=== PATIENT | male | born 1955 | race Caucasian/White ===

== ENCOUNTER 2016-10-29 06:03 | Inpatient (IN) | payer OTHER ==
[2016-10-29] MEDS ORDERED: LEVOFLOXACIN 750 MG/D5W RTU 150 ML IV ONE (06:18)
[2016-10-29] MEDS ORDERED: CEFTRIAXONE 1 GM/D5W RTU 50 ML IV ONE (06:18)
[2016-10-29] MEDS ORDERED: NORMAL SALINE 1000 ML 1,000 ML IV ONE ×2 (06:18→09:40)
[2016-10-29 07:00] LABS: HEMATOCRIT 55.3 % (37.9-51.0); HGB HCT DIFFERENCE -1.3; MEAN CORPUSCULAR HEMOGLOBIN 29.9 pg (27.0-33.4); MEAN CORPUSCULAR HGB CONC 32.5 g/dL (32.0-36.0); MEAN CORPUSCULAR VOLUME 92 fl (80-97); RED BLOOD COUNT 6.02 10^6/uL (4.35-5.55); RED CELL DISTRIBUTION WIDTH 14.5 % (11.5-14.0); WHITE BLOOD COUNT 23.3 10^3/uL (4.0-10.5)
[2016-10-29 07:04] LABS: PROTHROMBIN TIME 29.8 SEC (11.4-15.4)
[2016-10-29 07:08] LABS: APPEARANCE,URINE TURBID; BILIRUBIN,URINE NEGATIVE (NEGATIVE); GLUCOSE, URINE NEGATIVE (NEGATIVE); KETONES,URINE NEGATIVE (NEGATIVE); LEUKOCYTE ESTERASE,URINE LARGE (NEGATIVE); NITRITE,URINE POSITIVE (NEGATIVE); PROTEIN,URINE NEGATIVE (NEGATIVE); URINE SPECIFIC GRAVITY 1.006; UROBILINOGEN,URINE NEGATIVE mg/dL (<2.0)
[2016-10-29 07:11] LABS: ALANINE AMINOTRANSFERASE 48 U/L (21-72); ALBUMIN 4.7 g/dL (3.5-5.0); ALKALINE PHOSPHATASE 145 U/L (38-126); ASPARTATE AMINO TRANSFERASE 34 U/L (17-59); BILIRUBIN,DIRECT 0.4 mg/dL (0.0-0.4); BILIRUBIN,TOTAL 0.8 mg/dL (0.2-1.3); BLOOD UREA NITROGEN 14 mg/dL (7-20); CALCIUM 10.7 mg/dL (8.4-10.2); CARBON DIOXIDE 21 mmol/L (22-30); CREATININE RESULT 1.19 mg/dL (0.52-1.25); GLUCOSE 192 mg/dL (75-110); LIPASE 174.3 U/L (23-300); TOTAL PROTEIN 9.2 g/dL (6.3-8.2)
[2016-10-29 07:24] LABS: BAND NEUTROPHILS % (MANUAL) 3 % (3-5); BASOPHILS % (MANUAL) 0 % (0-2); EOSINOPHILS % (MANUAL) 0 % (0-6); LYMPHOCYTES % (MANUAL) 8 % (13-45); TOTAL CELLS COUNTED 100
[2016-10-29 07:27] LABS: OVALOCYTES SLIGHT; PLATELET CLUMPS PRESENT; POIKILOCYTOSIS 1+; TEAR DROP CELLS SLIGHT
[2016-10-29 07:36] LABS: CHLORIDE 103 mmol/L (98-107); POTASSIUM 4.1 mmol/L (3.6-5.0)
[2016-10-29 07:37] LABS: ANION GAP 22 (5-19)
[2016-10-29] MEDS: NORMAL SALINE 1000 ML 1,000 ML IV PRN ×2 (07:58→08:00)
[2016-10-29 08:47] LABS: VENOUS BLOOD BASE EXCESS -5.3 mmol/L; VENOUS BLOOD HCO3 19.3 mmol/L (20-32); VENOUS BLOOD PCO2 34.9 mmHg (35-63); VENOUS BLOOD PH 7.36 (7.30-7.42)
--- NOTE | 2016-10-29 10:12 | RADIOLOGY REPORT (SQ) ---
EXAM DESCRIPTION: CT ABD/PELVIS WITH IV ONLY COMPLETED DATE/TIME: 10/29/2016 9:43 am REASON FOR STUDY: sepsis COMPARISON: None. TECHNIQUE: CT scan of the abdomen and pelvis performed using helical scanning technique with dynamic intravenous contrast injection. No oral contrast. Images reviewed with lung, soft tissue, and bone windows. Reconstructed coronal and sagittal MPR images reviewed. Delayed images for evaluation of the urinary system also acquired. All images stored on PACS. All CT scanners at this facility use dose modulation, iterative reconstruction, and/or weight based d osing when appropriate to reduce radiation dose to as low as reasonably achievable (ALARA). [facility]: Dose Right [facility]: CareDose [facility]: Dose Right [facility]: Teradose 4D [facility]: Stroho CONTRAST TYPE AND DOSE: 100 Isovue 370- low osmolar. RENAL FUNCTION: CREATININE MEASURES 1.19 RADIATION DOSE: 40.07mGy. LIMITATIONS: None. FINDINGS: LOWER CHEST: Patchy dependent subsegmental atelectasis. LIVER: Normal size. No masses or dilated ducts. SPLEEN: Normal size. No focal lesions. PANCREAS: No masses. No significant calcifications. No adjacent inflammation or peripancreatic fluid collections. Pancreatic duct not dilated. GALLBLADDER: No identified stones by CT criteria. No inflammatory changes to suggest cholecystitis. ADRENAL GLANDS: No significant masses or asymmetry. RIGHT KIDNEY AND URETER: No solid masses. No significant calcifications. No hydronephrosis or hyd roureter. LEFT KIDNEY AND URETER: No solid masses. No significant calcifications. No hydronephrosis or hydr oureter. AORTA AND VESSELS: No aneurysm. No dissection. Renal arteries, SMA, celiac without stenosis. RETROPERITONEUM: No retroperitoneal adenopathy, hemorrhage or masses. BOWEL AND PERITONEAL CAVITY: No masses or inflammatory changes. No free fluid or peritoneal masses. APPENDIX: Normal. PELVIS: No mass or free fluid. Bladder is decompressed with Neely catheter. There is marked circumf erential bladder wall thickening. ABDOMINAL WALL: No masses. Fat containing periumbilical and bilateral inguinal hernias. BONES: Degenerative change without fracture or suspicious osseous lesion. OTHER: No other significant finding. IMPRESSION: BLADDER DECOMPRESSED WITH NEELY CATHETER WITH MARKED CIRCUMFERENTIAL BLADDER WALL THICKE JOSEPH SUGGESTIVE OF CYSTITIS. CORRELATE WITH URINARY STUDIES. NO ADDITIONAL ACUTE OR SIGNIFICANT FIN DINGS. TECHNICAL DOCUMENTATION: JOB ID: [id number] Quality ID # [id number]: Final reports with documentation of one or more dose reduction techniques (e.g., Au tomated exposure control, adjustment of the mA and/or kV according to patient size, use of iterative reconstruction technique) 2010 [employer]- All Rights Reserved
--- NOTE | 2016-10-29 10:18 | RADIOLOGY REPORT (SQ) ---
EXAM DESCRIPTION: CHEST PA/LAT COMPLETED DATE/TIME: 10/29/2016 9:59 am REASON FOR STUDY: sepsis COMPARISON: None. EXAM PARAMETERS: NUMBER OF VIEWS: two views TECHNIQUE: Digital Frontal and Lateral radiographic views of the chest acquired. RADIATION DOSE: NA LIMITATIONS: Limited lateral view. FINDINGS: LUNGS AND PLEURA: No opacities, masses or pneumothorax. No pleural effusion. MEDIASTINUM AND HILAR STRUCTURES: No masses or contour abnormalities. HEART AND VASCULAR STRUCTURES: Heart normal size. No evidence for failure. BONES: No acute findings. HARDWARE: None in the chest. OTHER: No other significant finding. IMPRESSION: NO SIGNIFICANT RADIOGRAPHIC FINDING IN THE CHEST. TECHNICAL DOCUMENTATION: JOB ID: [id number] [employer]- All Rights Reserved
--- NOTE | 2016-10-29 10:21 | ER Document Report ---
ED General - General Chief Complaint: Urinary Problem Stated Complaint: ABDOMINAL PAIN Time Seen by Provider: 10/29/16 06:28 - HPI Patient complains to provider of: Abdominal pain decreased urinary output Notes: Patient presents today with a history of a CVA and spinal cord injury with indwelling Mcguire catheter patient is originally from [facility] and is here at the [facility] visiting from vacation patient presents for decreased urinary output. Upon evaluation patient also is complaining of upper abdominal pain. Patient denies any nausea vomiting diarrhea. HPI is made difficult as patient has previous CVA we will looks to be expressive aphasia. Upon family arrival states patient otherwise neurologically intact does have some residual weakness and contractures of the left side however this is normal for the patient. States patient's been afebrile no nausea no vomiting. No changes in medications Past Medical History - Social History Smoking Status: Unknown if Ever Smoked Drug Abuse: None Family History: Reviewed & Not Pertinent Review of Systems - Review of Systems Constitutional: No symptoms reported EENT: No symptoms reported Cardiovascular: No symptoms reported Respiratory: No symptoms reported Gastrointestinal: No symptoms reported Genitourinary: Retention Male Genitourinary: No symptoms reported Musculoskeletal: No symptoms reported Skin: No symptoms reported Hematologic/Lymphatic: No symptoms reported Neurological/Psychological: No symptoms reported -: Yes All other systems reviewed and negative Physical Exam - Vital signs Vitals: Resp 23 H 10/29/16 06:12 Interpretation: Normal - General General appearance: Appears well, Alert - HEENT Head: Normocephalic, Atraumatic Eyes: Normal Pupils: PERRL - Respiratory Respiratory status: No respiratory distress Chest status: Nontender Breath sounds: Normal Chest palpation: Normal - Cardiovascular Rhythm: Regular Heart sounds: Normal auscultation Murmur: No - Abdominal Inspection: Normal Distension: No distension Bowel sounds: Normal Tenderness: Nontender Organomegaly: No organomegaly - Genitourinary Inspection: Other - Scrotum is red and irritated mildly swollen there is no signs of torsion or mass reflexes intact. Patient does have indwelling Mcguire catheter that has some debris around the catheter site this was exchanged by nursing staff. After exchange patient had approximately 1000 cc output with cloudy urine with white debris - Back Back: Normal, Nontender - Extremities General upper extremity: Normal inspection, Nontender General lower extremity: Normal inspection, Nontender - Neurological Neuro grossly intact: Yes Vanesa Coma Scale Eye Opening: Spontaneous [place] Coma Scale Verbal: Oriented [place] Coma Scale Motor: Obeys Commands Vanesa Coma Scale Total: 15 Sensory: Normal - Psychological Associated symptoms: Normal affect, Normal mood - Skin Skin Temperature: Warm Skin Moisture: Dry Skin Color: Normal Course - Re-evaluation Re-evalutation: 10/29/16 11:00 Coming in for evaluation decreased urinary output. Patient was found to be tachycardic hypotensive. Patient Mcguire catheter was exchanged with a generous amount of urinary output unable to be infected. Patient's lab work does show signs of sepsis with elevated white count dehydration with hemoconcentration. EKG was performed showing minimal ST segment elevation however patient has no chest pain noted depressions no reciprocal changes no signs of STEMI at this time. Patient's Coumadin level at this time does look to be therapeutic. Family other than stating patient had a seizure disorder and is on Keppra and is on Coumadin due to his previous CVA are unable to provide much of the past medical history. Patient was recently admitted to the hospital in [place] for approximately 9 days for similar infection we have faxed multiple times request to receive her records however yet there is been no response. Patient otherwise looks to be stable at this time. Blood pressure has improved to greater than 100 systolic. Heart rate is now in the 80s. Discussed with hospitalist for admission 10/29/16 11:01 - Vital Signs Vital signs: Temp Pulse Resp BP Pulse Ox 29 H 10/29/16 06:15 - Laboratory Result Diagrams: 10/29/16 06:41 10/29/16 06:41 Laboratory results interpreted by me: 10/29/16 10/29/16 10/29/16 06:41 06:41 06:41 WBC 23.3 H RBC 6.02 H Hgb 18.0 H Hct 55.3 H RDW 14.5 H Seg Neuts % (Manual) 88 H Lymphocytes % (Manual) 8 L Monocytes % (Manual) 1 L Abs Neuts (Manual) 21.2 H PT 29.8 H VBG pCO2 VBG HCO3 Sodium 146.0 H Carbon Dioxide 21 L Anion Gap 22 H Glucose 192 H Lactic Acid Calcium 10.7 H Alkaline Phosphatase 145 H Total Protein 9.2 H Urine Blood Urine Nitrite Ur Leukocyte Esterase 10/29/16 10/29/16 10/29/16 06:41 06:53 08:30 WBC RBC Hgb Hct RDW Seg Neuts % (Manual) Lymphocytes % (Manual) Monocytes % (Manual) Abs Neuts (Manual) PT VBG pCO2 34.9 L VBG HCO3 19.3 L Sodium Carbon Dioxide Anion Gap Glucose Lactic Acid 5.9 H Calcium Alkaline Phosphatase Total Protein Urine Blood MODERATE H Urine Nitrite POSITIVE H Ur Leukocyte Esterase LARGE H Critical Care Note - Critical Care Note Total time excluding time spent on procedures (mins): 35 Comments: Multiple evaluations due to sepsis Discharge - Discharge Clinical Impression: History of warfarin therapy, History of stroke, History of spinal cord accident UTI (urinary tract infection) due to urinary indwelling Mcguire catheter Qualifiers: Indwelling urinary catheter type: indwelling urethral catheter Encounter type: initial encounter Qualified Code(s): T83.511A - Infection and inflammatory reaction due to indwelling urethral catheter, initial encounter Sepsis Qualifiers: Sepsis type: sepsis due to unspecified organism Qualified Code(s): A41.9 - Sepsis, unspecified organism Condition: Good Disposition: ADMITTED INPATIENT Admitting Provider: [facility] Unit Admitted: [facility]
--- NOTE | 2016-10-29 12:03 | PDOC H&P ---
History of Present Illness Admission Date/PCP: 10/29/2016 History of Present Illness: HUMBERTO GARCIA is a 61 year old white male with a past medical history of CVA, spinal cord injury, and chronic indwelling Neely with multiple urinary tract infections who presents to the service with decreased urinary output. Patient has expressive aphasia. Therefore, the history is taken from his and my discussion with the emergency room physician. According to the patient's they travelled down here from [facility] [place] vacation [place]. Over the last week the patient has had development of cloudy urine. His gave him copious fluids to flush system and his urine seemed to clear up. Yesterday they noticed that he stopped putting out urine altogether. They tried to figure out if there was something mechanically wrong with the Neely but could not get it to work. In the ED the patient was found to be hypotensive down to the 80s, tachycardic and a lactic acid of 6. The Neely catheter was exchanged and the patient was able to pass large amounts of urine. It was described as thick and cloudy. Urinalysis revealed positive nitrates and leukocyte esterase. CT of the abdomen was done and is negative. Chest x-ray was negative. The patient's spouse denied any fevers, chills, nausea or vomiting at home. They are from [facility] and [facility] Request for records has already been sent down in the emergency room. Received 3 L of fluid with blood pressure coming back up to 101. However, after my discussion with the patient's she tells me that the patient is usually hypotensive with systolic blood pressures in the 80s and 90s. Past Medical History Neurological Medical History: Reports: Ischemic CVA - Rest of apasia. August 2015 with residual right-sided weakness, Seizures Neurological History Note: Spinal cord injury the age of 25. Past Surgical History Past Surgical History: Spinal cord fusion. Social History Information Source: Patient, Relative Lives with: Spouse/Significant other Smoking Status: Former Smoker - Smoked for 10 years. He quit in August 2015 Frequency of Alcohol Use: None Hx Recreational Drug Use: No - Advance Directive Resuscitation Status: Full Code Family History Family History: Hypertension Parental Family History Reviewed: Yes Children Family History Reviewed: Yes Sibling(s) Family History Reviewed.: Yes Review of Systems Review of Systems: The patient had expressive aphasia and is not able to give a complete review of systems however his is at the bedside and states that he has had not had any issues with blood in the urine, blood in the stool, coughing up blood, throwing up blood. There have been no unintentional changes in weight. His appetite has been fair. He has not complained of chest pain or shortness of breath. He has not complained of cold or heat intolerance. He does confirm that he has trouble with constipation he does not have diarrhea. Physical Exam Vital Signs: Temp Pulse Resp BP Pulse Ox 29 H 10/29/16 06:15 Physical exam: General: This is a well-developed well-nourished appearing white male resting in bed currently in no acute distress. HEENT: Normocephalic atraumatic. trachea is midline. Sclera are anicteric. Pupils are equal and reactive. The asymmetric smile with flattening of the left nasolabial fold condition is fair moist mucous membranes. Heart: Regular rate and rhythm I do not hear any murmurs rubs or gallops. Lungs: Clear to auscultation bilaterally from the anterior perspective with equal rise and fall with chest pain Abdomen: Soft nontender nondistended with active bowel sounds. Extremities: No clubbing cyanosis or edema. 2+ peripheral pulses. Has contractures of the right hand. He cannot move his right leg. It appears to have some foot drop on that side. Strength in the left upper and strict extremities 4 out of 5. Left lower extremity the patient can move his toes. His states that he can move his left side and urges her to show me. The patient simply does not want to participate with the examination at this point. Therefore fully assess his left side secondary to lack of cooperation. Patient's states repeatedly that he can do what I am asking him to do that he simply does not want to. Neuro: Awake and alert. Please see examination details above. Has expressive aphasia Skin: Patient is warm dry and intact. Results Laboratory Results: 10/29/16 06:41 10/29/16 06:41 10/29/16 10/29/16 10/29/16 06:41 06:41 06:41 WBC 23.3 H RBC 6.02 H Hgb 18.0 H Hct 55.3 H MCV 92 MCH 29.9 MCHC 32.5 RDW 14.5 H Plt Count 255 Seg Neutrophils % Not Reportable Lymphocytes % Not Reportable Monocytes % Not Reportable Eosinophils % Not Reportable Basophils % Not Reportable Absolute Neutrophils Not Reportable Absolute Lymphocytes Not Reportable Absolute Monocytes Not Reportable Absolute Eosinophils Not Reportable Absolute Basophils Not Reportable VBG pH VBG pCO2 VBG HCO3 VBG Base Excess Sodium 146.0 H Potassium 4.1 Chloride 103 Carbon Dioxide 21 L Anion Gap 22 H BUN 14 Creatinine 1.19 Est GFR ( Amer) > 60 Est GFR (Non-Af Amer) > 60 Glucose 192 H Lactic Acid 5.9 H Calcium 10.7 H Magnesium Total Bilirubin 0.8 AST 34 ALT 48 Alkaline Phosphatase 145 H Total Protein 9.2 H Albumin 4.7 Lipase 174.3 Urine Color Urine Appearance Urine pH Ur Specific [place] Urine Protein Urine Glucose (UA) Urine Ketones Urine Blood Urine Nitrite Ur Leukocyte Esterase Urine WBC (Auto) Urine RBC (Auto) 10/29/16 10/29/16 10/29/16 06:41 06:41 06:53 WBC RBC Hgb Hct MCV MCH MCHC RDW Plt Count Seg Neutrophils % Lymphocytes % Monocytes % Eosinophils % Basophils % Absolute Neutrophils Absolute Lymphocytes Absolute Monocytes Absolute Eosinophils Absolute Basophils VBG pH Cancelled VBG pCO2 Cancelled VBG HCO3 Cancelled VBG Base Excess Cancelled Sodium Potassium Chloride Carbon Dioxide Anion Gap BUN Creatinine Est GFR ( Amer) Est GFR (Non-Af Amer) Glucose Lactic Acid Calcium Magnesium 2.3 Total Bilirubin AST ALT Alkaline Phosphatase Total Protein Albumin Lipase Urine Color YELLOW Urine Appearance TURBID Urine pH 6.0 Ur Specific [place] 1.006 Urine Protein NEGATIVE Urine Glucose (UA) NEGATIVE Urine Ketones NEGATIVE Urine Blood MODERATE H Urine Nitrite POSITIVE H Ur Leukocyte Esterase LARGE H Urine WBC (Auto) >182 Urine RBC (Auto) 4 10/29/16 08:30 WBC RBC Hgb Hct MCV MCH MCHC RDW Plt Count Seg Neutrophils % Lymphocytes % Monocytes % Eosinophils % Basophils % Absolute Neutrophils Absolute Lymphocytes Absolute Monocytes Absolute Eosinophils Absolute Basophils VBG pH 7.36 VBG pCO2 34.9 L VBG HCO3 19.3 L VBG Base Excess -5.3 Sodium Potassium Chloride Carbon Dioxide Anion Gap BUN Creatinine Est GFR ( Amer) Est GFR (Non-Af Amer) Glucose Lactic Acid Calcium Magnesium Total Bilirubin AST ALT Alkaline Phosphatase Total Protein Albumin Lipase Urine Color Urine Appearance Urine pH Ur Specific [place] Urine Protein Urine Glucose (UA) Urine Ketones Urine Blood Urine Nitrite Ur Leukocyte Esterase Urine WBC (Auto) Urine RBC (Auto) Impressions: Abdomen/Pelvis CT 10/29/16 07:42 IMPRESSION: BLADDER DECOMPRESSED WITH NEELY CATHETER WITH MARKED CIRCUMFERENTIAL BLADDER WALL THICKENING SUGGESTIVE OF CYSTITIS. CORRELATE WITH URINARY STUDIES. NO ADDITIONAL ACUTE OR SIGNIFICANT FINDINGS. Chest X-Ray 10/29/16 07:42 IMPRESSION: NO SIGNIFICANT RADIOGRAPHIC FINDING IN THE CHEST. Assessment & Plan - Diagnosis (1) UTI (urinary tract infection) due to urinary indwelling Neely catheter Qualifiers: Indwelling urinary catheter type: indwelling urethral catheter Encounter type: initial encounter Qualified Code(s): T83.511A - Infection and inflammatory reaction due to indwelling urethral catheter, initial encounter ; N39.0 - Urinary tract infection, site not specified Plan: Analysis is positive for nitrites as well as leukocyte esterase. Continue with Levaquin daily for now. In the ER he received Rocephin and Levaquin. (2) History of spinal cord injury Plan: Patient is at baseline. Hernandez. He apparently is on baclofen as an outpatient with this can be continued. (3) History of CVA (cerebrovascular accident) Plan: Patient has contractures. He has residual right-sided weakness. On warfarin as an outpatient for management of this. Will Continue. (4) Sepsis Qualifiers: Sepsis type: sepsis due to unspecified organism Qualified Code(s): A41.9 - Sepsis, unspecified organism Plan: The patient has sepsis as evidenced by elevated lactic acid, hypotension, tachycardia. The management with Levaquin daily. It is noted that the patient' s has stated that his blood pressure usually runs low. Status post 3 L of fluid in the ED we can continue at 100 cc an hour. - Time Time Spent: 50 to 70 Minutes - Inpatient Certification Based on my medical assessment, after consideration of the patient's comorbidities, presenting symptoms, or acuity I expect that the services needed warrant INPATIENT care.: Yes Medical Necessity: Need Close Monitoring Due to Risk of Patient Decompensation
--- NOTE | 2016-10-29 14:07 | Progress Note ---
Provider Note Provider Note: Update: I received a call from the ER physician. The patient's medical records from [place] did come through. He discloses to me that the patient does have a history of atrial fibrillation which is why he had a stroke in the past. He is also on Keppra for his seizure disorder and for his neurogenic bladder it does not appear that he is on any chronic antibiotics. He is however on Ativan as needed, baclofen, Celexa, gabapentin, Midrin, warfarin and the Keppra. He also has a history of MRSA urinary tract infection. Therefore, on daptomycin until we get his cultures back.
[2016-10-29] MEDS ORDERED: LORAZEPAM 0.5 MG TABLET PO PRN (15:44)
[2016-10-29] MEDS ORDERED: POLYETHYLENE GLYCOL 3350 POWDER 17 GM/1 PACKET PO PRN (17:30)
[2016-10-29] MEDS: DAPTOMYCIN 500 MG in NORMAL SALINE 50 ML IV SCH (18:00)
[2016-10-29] MEDS ORDERED: DAPTOMYCIN 500 MG in NORMAL SALINE 50 ML IV SCH (18:00)
[2016-10-29] MEDS ORDERED: BACLOFEN 20 MG TABLET ONE (21:42)
[2016-10-29] MEDS ORDERED: LEVETIRACETAM 500 MG TABLET PO SCH (22:00)
[2016-10-29] MEDS ORDERED: LEVETIRACETAM XR 500 MG TAB.SR.24H PO SCH (22:00)
[2016-10-29] MEDS: WARFARIN SODIUM 1 MG TABLET PO SCH (22:15)
[2016-10-29] MEDS: BACLOFEN 20 MG TABLET PO SCH (22:15)
[2016-10-29] MEDS: GABAPENTIN 100 MG CAPSULE PO SCH (22:15)
[2016-10-29] MEDS: LORAZEPAM 1 MG TABLET PO SCH (22:15)
[2016-10-29] MEDS: MIDODRINE HCL 5 MG TABLET PO SCH (22:16)
[2016-10-29] MEDS: WARFARIN SODIUM 2.5 MG TABLET PO SCH (22:16)
[2016-10-29] MEDS ORDERED: LEVETIRACETAM 500 MG TABLET PO ONE (22:45)
[2016-10-30] MEDS: NORMAL SALINE 1000 ML 1,000 ML IV PRN ×3 (01:00→21:15)
[2016-10-30] MEDS: GABAPENTIN 100 MG CAPSULE PO SCH ×3 (05:24→21:16)
[2016-10-30] MEDS: LANSOPRAZOLE 15 MG TAB.RAP.DR PO SCH (05:24)
[2016-10-30] MEDS: MIDODRINE HCL 5 MG TABLET PO SCH ×3 (05:24→21:11)
[2016-10-30] MEDS ORDERED: BACLOFEN 20 MG TABLET ONE (06:16)
[2016-10-30] MEDS: BACLOFEN 20 MG TABLET PO SCH ×3 (06:20→21:17)
[2016-10-30] MEDS: ESCITALOPRAM OXALATE 10 MG TABLET PO SCH (09:17)
[2016-10-30] MEDS: LEVETIRACETAM 500 MG TABLET PO SCH ×2 (09:18→21:17)
[2016-10-30] MEDS: LEVOFLOXACIN 500 MG/D5W RTU 100 ML IV SCH (09:18)
[2016-10-30] MEDS: DOCUSATE SODIUM 100 MG CAPSULE PO SCH (09:18)
[2016-10-30] MEDS: MULTIVITAMIN TABLET PO SCH (09:18)
--- NOTE | 2016-10-30 13:06 | PDOC PROGRESS REPORT ---
Subjective Progress Note for:: 10/30/16 Subjective:: This is a follow-up visit for UTI and sepsis. The patient had no acute events overnight. He currently has no complaints. Denies any chest pain or shortness of breath Physical Exam Vital Signs: Temp Pulse Resp BP Pulse Ox 97.6 F 58 L 17 116/70 96 10/30/16 11:58 10/30/16 11:58 10/30/16 11:58 10/30/16 11:58 10/30/16 11:58 Intake & Output 10/29/16 10/30/16 10/31/16 06:59 06:59 06:59 Intake Total 2249 720 Output Total 2250 1300 Balance -1 -580 Weight 93.4 kg Physical exam: General: This is a well-developed well-nourished appearing white male resting in bed currently in no acute distress. Heart: Regular rate and rhythm I do not hear any murmurs rubs or gallops. Lungs: Clear to auscultation bilaterally from the anterior perspective with equal rise and fall with chest pain Abdomen: Soft nontender nondistended with active bowel sounds. Extremities: No clubbing cyanosis or edema. Neuro: Awake and alert. Has expressive aphasia Skin: Patient is warm dry and intact. Results Impressions: Abdomen/Pelvis CT 10/29/16 07:42 IMPRESSION: BLADDER DECOMPRESSED WITH NEELY CATHETER WITH MARKED CIRCUMFERENTIAL BLADDER WALL THICKENING SUGGESTIVE OF CYSTITIS. CORRELATE WITH URINARY STUDIES. NO ADDITIONAL ACUTE OR SIGNIFICANT FINDINGS. Chest X-Ray 10/29/16 07:42 IMPRESSION: NO SIGNIFICANT RADIOGRAPHIC FINDING IN THE CHEST. Assessment & Plan - Diagnosis (1) UTI (urinary tract infection) due to urinary indwelling Neely catheter Qualifiers: Indwelling urinary catheter type: indwelling urethral catheter Encounter type: initial encounter Qualified Code(s): T83.511A - Infection and inflammatory reaction due to indwelling urethral catheter, initial encounter; N39.0 - Urinary tract infection, site not specified Plan: Analysis is positive for nitrites as well as leukocyte esterase. Continue with Levaquin daily for now. Await identification and speciation from the urine cultures. (2) History of spinal cord injury Plan: Patient is at baseline. Hernandez. He apparently is on baclofen as an outpatient with this can be continued. (3) History of CVA (cerebrovascular accident) Plan: Patient has contractures. He has residual right-sided weakness. On warfarin as an outpatient for management of this. Will Continue. (4) Sepsis Qualifiers: Sepsis type: sepsis due to unspecified organism Qualified Code(s): A41.9 - Sepsis, unspecified organism Plan: Secondary to urinary tract infection. This is resolving. Labs are still pending this morning - Time Time Spent with patient: 15-24 minutes - Inpatient Certification Medical Necessity: Need Close Monitoring Due to Risk of Patient Decompensation
[2016-10-30 16:08] LABS: ABSOLUTE EOSINOPHILS # (AUTO) 0.5 10^3/uL (0.0-0.6); ABSOLUTE LYMPHOCYTES (AUTO) 1.5 10^3/uL (0.5-4.7); ABSOLUTE MONOCYTES (AUTO) 0.5 10^3/uL (0.1-1.4); ABSOLUTE NEUT (AUTO) 3.9 10^3/uL (1.7-8.2); BASOPHILS % (AUTO) 0.7 % (0-2); EOSINOPHILS % (AUTO) 7.3 % (0-6); HEMATOCRIT 36.7 % (37.9-51.0); HGB HCT DIFFERENCE 1.4; LYMPHOCYTES % (AUTO) 23.6 % (13-45); MEAN CORPUSCULAR HEMOGLOBIN 30.6 pg (27.0-33.4); MEAN CORPUSCULAR HGB CONC 34.5 g/dL (32.0-36.0); MEAN CORPUSCULAR VOLUME 89 fl (80-97); MONOCYTES % (AUTO) 7.2 % (3-13); RED BLOOD COUNT 4.14 10^6/uL (4.35-5.55); RED CELL DISTRIBUTION WIDTH 14.8 % (11.5-14.0); SEGMENTED NEUTROPHILS % (AUTO) 61.2 % (42-78); WHITE BLOOD COUNT 6.3 10^3/uL (4.0-10.5)
[2016-10-30 16:12] LABS: HEMOGLOBIN 12.7 g/dL (13.5-17.0)
[2016-10-30 16:35] LABS: ANION GAP 8 (5-19); BLOOD UREA NITROGEN 9 mg/dL (7-20); CALCIUM 9.2 mg/dL (8.4-10.2); CARBON DIOXIDE 24 mmol/L (22-30); CHLORIDE 111 mmol/L (98-107); CREATININE RESULT 0.82 mg/dL (0.52-1.25); GLUCOSE 132 mg/dL (75-110); POTASSIUM 4.1 mmol/L (3.6-5.0); SODIUM 143.2 mmol/L (137-145)
[2016-10-30] MEDS: DAPTOMYCIN 500 MG in NORMAL SALINE 50 ML IV SCH (17:11)
[2016-10-30] MEDS: WARFARIN SODIUM 1 MG TABLET PO SCH (21:16)
[2016-10-30] MEDS: LORAZEPAM 1 MG TABLET PO SCH (21:16)
[2016-10-30] MEDS: WARFARIN SODIUM 2.5 MG TABLET PO SCH (21:16)
[2016-10-31 05:52] LABS: HEMATOCRIT 36.9 % (37.9-51.0); HEMOGLOBIN 12.8 g/dL (13.5-17.0); HGB HCT DIFFERENCE 1.5; MEAN CORPUSCULAR HEMOGLOBIN 30.7 pg (27.0-33.4); MEAN CORPUSCULAR HGB CONC 34.6 g/dL (32.0-36.0); MEAN CORPUSCULAR VOLUME 89 fl (80-97); RED BLOOD COUNT 4.15 10^6/uL (4.35-5.55); RED CELL DISTRIBUTION WIDTH 14.5 % (11.5-14.0); WHITE BLOOD COUNT 6.9 10^3/uL (4.0-10.5)
[2016-10-31 06:05] LABS: ANION GAP 10 (5-19); BLOOD UREA NITROGEN 8 mg/dL (7-20); CALCIUM 9.4 mg/dL (8.4-10.2); CARBON DIOXIDE 24 mmol/L (22-30); CHLORIDE 110 mmol/L (98-107); CREATININE RESULT 0.78 mg/dL (0.52-1.25); GLUCOSE 101 mg/dL (75-110); POTASSIUM 3.6 mmol/L (3.6-5.0); SODIUM 144.4 mmol/L (137-145)
[2016-10-31] MEDS: MIDODRINE HCL 5 MG TABLET PO SCH ×3 (06:23→21:57)
[2016-10-31] MEDS: BACLOFEN 20 MG TABLET PO SCH ×3 (06:24→21:57)
[2016-10-31] MEDS: LANSOPRAZOLE 15 MG TAB.RAP.DR PO SCH (06:24)
[2016-10-31] MEDS: GABAPENTIN 100 MG CAPSULE PO SCH ×3 (06:24→21:54)
[2016-10-31] MEDS: NORMAL SALINE 1000 ML 1,000 ML IV PRN ×2 (06:28→19:39)
--- NOTE | 2016-10-31 09:56 | EKG REPORT ---
SEVERITY:- BORDERLINE ECG - SINUS TACHYCARDIA BORDERLINE ST ELEVATION, ANTEROLATERAL LEADS : Confirmed by: Jay Jay Gallardo 31-Oct-2016 09:54:09
[2016-10-31] MEDS: LEVOFLOXACIN 500 MG/D5W RTU 100 ML IV SCH (09:57)
[2016-10-31] MEDS: MULTIVITAMIN TABLET PO SCH (09:57)
[2016-10-31] MEDS: LEVETIRACETAM 500 MG TABLET PO SCH ×2 (09:58→21:54)
[2016-10-31] MEDS: ESCITALOPRAM OXALATE 10 MG TABLET PO SCH (09:58)
[2016-10-31] MEDS: DOCUSATE SODIUM 100 MG CAPSULE PO SCH (09:58)
[2016-10-31] MEDS ORDERED: HYDROCODONE/ACETAMINOPHEN 5-325 MG TABLET PO ONE (17:30)
[2016-10-31] MEDS: DAPTOMYCIN 500 MG in NORMAL SALINE 50 ML IV SCH (17:41)
--- NOTE | 2016-10-31 19:11 | PDOC DISCHARGE SUMMARY ---
General - Admit/Disc Date/PCP Admission Date/Primary Care Provider: 10/29/16 11:13 Discharge Date: 11/01/16 - Discharge Diagnosis (1) UTI (urinary tract infection) due to urinary indwelling Neely catheter Summary: Throughout MRSA susceptible to doxycycline or Bactrim. It was also susceptible to eliminate fluid however there was multiple interactions with his home medications. Therefore he will be sent home on doxycycline 100 mg p.o. twice daily for an additional 12 days. This will give him a total of 14 days of treatment. She will need to follow-up with his primary care doctor in a week back to [place]. (2) History of spinal cord injury Summary: Stable continue baclofen. (3) History of CVA (cerebrovascular accident) Summary: Stable. Continue home medications. (4) Sepsis Summary: Resolved secondary to urinary tract infection (5) Seizure disorder Summary: No Events in the hospital. Continue outpatient Keppra - Additional Information Resuscitation Status: Full Code Home Medications: Atorvastatin Calcium [Lipitor 20 mg Tablet] 20 mg PO QHS 10/29/16 Baclofen [Baclofen 20 mg Tablet] 20 mg PO Q8 10/29/16 Cholecalciferol (Vitamin D3) [Vitamin D3 2000 unit Tablet] 4,000 unit PO DAILY 10/29/16 Escitalopram Oxalate [Lexapro] 20 mg PO DAILY 10/29/16 Gabapentin [Neurontin 100 mg Capsule] 100 mg PO TID 10/29/16 Levetiracetam [Levetiracetam ER] 500 mg PO Q12 10/29/16 Lorazepam [Ativan 1 mg Tablet] 1 mg PO QHS 10/29/16 Midodrine HCl 2.5 mg PO Q8 10/29/16 Multivitamin [Tab-A-Flash] 1 tab PO DAILY 10/29/16 Mupirocin [Bactroban 2% Ointment 22 gm] 1 applic TP BID 10/29/16 Polyethylene Glycol 3350 [Miralax] 17 gm PO DAILYP PRN 10/29/16 Sennosides/Docusate Sodium [Sennosides-Docusate Sodium Tab] 2 tab PO QHS Warfarin Sodium [Coumadin 1 mg Tablet] 1 mg PO QHS 10/29/16 Warfarin Sodium [Coumadin 2.5 mg Tablet] 2.5 mg PO QHS 10/29/16 Doxycycline Hyclate 100 mg PO BID #24 capsule 10/31/16 History of Present Illness History of Present Illness: HUMBERTO GARCIA is a 61 year old white male with a past medical history of CVA, spinal cord injury, and chronic indwelling Neely with multiple urinary tract infections who presents to the service with decreased urinary output. Patient has expressive aphasia. Therefore, the history is taken from his and my discussion with the emergency room physician. According to the patient's they travelled down here from [facility] [place]. Over the last week the patient has had development of cloudy urine. His gave him copious fluids to flush system and his urine seemed to clear up. Yesterday they noticed that he stopped putting out urine altogether. They tried to figure out if there was something mechanically wrong with the Neely but could not get it to work. In the ED the patient was found to be hypotensive down to the 80s, tachycardic and a lactic acid of 6. The Neely catheter was exchanged and the patient was able to pass large amounts of urine. It was described as thick and cloudy. Urinalysis revealed positive nitrates and leukocyte esterase. CT of the abdomen was done and is negative. Chest x-ray was negative. The patient's spouse denied any fevers, chills, nausea or vomiting at home. They are from [facility] and he is usually followed at [facility]. Request for records has already been sent down in the emergency room. Received 3 L of fluid with blood pressure coming back up to 101. However, after my discussion with the patient's she tells me that the patient is usually hypotensive with systolic blood pressures in the 80s and 90s. Hospital Course Hospital Course: The patient was admitted to the hospital and has done very well ever since his Neely catheter was exchanged. It seems to have been occluded. This ultimately led to urinary tract infection which grew out MRSA. Patient was started on daptomycin and received 3 nights of daptomycin while here. Initially he was placed on Levaquin but this of course was not it as the organism was not susceptible. Will be discharged on doxycycline for another 12 days. He should follow-up with his primary care physician. In regards to his sepsis, This is secondary to his urinary tract infection and his hypotension and lactic acidosis resolved. Physical Exam Vital Signs: Temp Pulse Resp BP Pulse Ox 97.5 F 59 L 16 147/90 H 97 10/31/16 07:44 10/31/16 07:44 10/31/16 07:44 10/31/16 07:44 10/31/16 03:37 Intake & Output 10/30/16 10/31/16 11/01/16 06:59 06:59 06:59 Intake Total 2249 4212 Output Total 2250 4400 Balance -1 -188 Weight 93.4 kg 98.5 kg Physical exam: General: This is a well-developed well-nourished appearing white male resting in bed currently in no acute distress. Heart: Regular rate and rhythm I do not hear any murmurs rubs or gallops. Lungs: Clear to auscultation bilaterally from the anterior perspective with equal rise and fall with chest pain Abdomen: Soft nontender nondistended with active bowel sounds. Extremities: No clubbing cyanosis or edema. Neuro: Awake and alert. Has expressive aphasia Skin: Patient is warm dry and intact. Results Laboratory Results: 10/31/16 05:14 10/31/16 05:14 10/30/16 10/30/16 10/31/16 16:02 16:02 05:14 WBC 6.3 6.9 RBC 4.14 L 4.15 L Hgb 12.7 L D 12.8 L Hct 36.7 L 36.9 L MCV 89 89 MCH 30.6 30.7 MCHC 34.5 34.6 RDW 14.8 H 14.5 H Plt Count 168 156 Seg Neutrophils % 61.2 Lymphocytes % 23.6 Monocytes % 7.2 Eosinophils % 7.3 H Basophils % 0.7 Absolute Neutrophils 3.9 Absolute Lymphocytes 1.5 Absolute Monocytes 0.5 Absolute Eosinophils 0.5 Absolute Basophils 0.0 Sodium 143.2 Potassium 4.1 Chloride 111 H Carbon Dioxide 24 Anion Gap 8 BUN 9 Creatinine 0.82 Est GFR ( Amer) > 60 Est GFR (Non-Af Amer) > 60 Glucose 132 H Calcium 9.2 Magnesium 2.0 10/31/16 05:14 WBC RBC Hgb Hct MCV MCH MCHC RDW Plt Count Seg Neutrophils % Lymphocytes % Monocytes % Eosinophils % Basophils % Absolute Neutrophils Absolute Lymphocytes Absolute Monocytes Absolute Eosinophils Absolute Basophils Sodium 144.4 Potassium 3.6 Chloride 110 H Carbon Dioxide 24 Anion Gap 10 BUN 8 Creatinine 0.78 Est GFR ( Amer) > 60 Est GFR (Non-Af Amer) > 60 Glucose 101 Calcium 9.4 Magnesium 2.0 Impressions: Abdomen/Pelvis CT 10/29/16 07:42 IMPRESSION: BLADDER DECOMPRESSED WITH NEELY CATHETER WITH MARKED CIRCUMFERENTIAL BLADDER WALL THICKENING SUGGESTIVE OF CYSTITIS. CORRELATE WITH URINARY STUDIES. NO ADDITIONAL ACUTE OR SIGNIFICANT FINDINGS. Chest X-Ray 10/29/16 07:42 IMPRESSION: NO SIGNIFICANT RADIOGRAPHIC FINDING IN THE CHEST. Qualifiers PATEINT BEING DISCHARGED WITH ANY OF THE FOLLOWING DIAGNOSIS?: No Plan Time Spent: Less than 30 Minutes
[2016-10-31] MEDS: LORAZEPAM 1 MG TABLET PO SCH (21:54)
[2016-10-31] MEDS: WARFARIN SODIUM 1 MG TABLET PO SCH (21:57)
[2016-10-31] MEDS: WARFARIN SODIUM 2.5 MG TABLET PO SCH (21:57)
[2016-11-01] MEDS: LANSOPRAZOLE 15 MG TAB.RAP.DR PO SCH (05:30)
[2016-11-01] MEDS: BACLOFEN 20 MG TABLET PO SCH (05:30)
[2016-11-01] MEDS: MIDODRINE HCL 5 MG TABLET PO SCH (05:30)
[2016-11-01] MEDS: GABAPENTIN 100 MG CAPSULE PO SCH (05:30)
[2016-11-01 06:26] LABS: HEMATOCRIT 36.4 % (37.9-51.0); HEMOGLOBIN 12.8 g/dL (13.5-17.0); MEAN CORPUSCULAR HEMOGLOBIN 30.8 pg (27.0-33.4); MEAN CORPUSCULAR HGB CONC 35.2 g/dL (32.0-36.0); MEAN CORPUSCULAR VOLUME 87 fl (80-97); RED BLOOD COUNT 4.18 10^6/uL (4.35-5.55); RED CELL DISTRIBUTION WIDTH 14.3 % (11.5-14.0); WHITE BLOOD COUNT 7.3 10^3/uL (4.0-10.5)
[2016-11-01 06:46] LABS: ANION GAP 8 (5-19); BLOOD UREA NITROGEN 9 mg/dL (7-20); CALCIUM 9.5 mg/dL (8.4-10.2); CARBON DIOXIDE 24 mmol/L (22-30); CHLORIDE 111 mmol/L (98-107); CREATININE RESULT 0.81 mg/dL (0.52-1.25); GLUCOSE 101 mg/dL (75-110); MAGNESIUM 2.1 mg/dL (1.6-2.3); POTASSIUM 3.9 mmol/L (3.6-5.0); SODIUM 143.1 mmol/L (137-145)
[2016-11-01] MEDS: LEVETIRACETAM 500 MG TABLET PO SCH (09:08)
[2016-11-01] MEDS: MULTIVITAMIN TABLET PO SCH (09:08)
[2016-11-01] MEDS: DOCUSATE SODIUM 100 MG CAPSULE PO SCH (09:08)
[2016-11-01] MEDS: ESCITALOPRAM OXALATE 10 MG TABLET PO SCH (09:08)
[2016-11-01 11:07] VITALS: BP 122/59
--- NOTE | 2016-11-01 17:27 | Progress Note ---
Provider Note Provider Note: pt has a MRSA UTI related to indwelling ashley catheter required for urine retention 2/2 prior CVA. susc's indicate he may respond to doxycycline and after discussion with family we have elected a trial of doxy as outpt in an effort to reserve IV abx for later use, with close f/u via his urologist and strict instructions to return to the ED for any worsening of his condition for resumption of IV abx. d/c arrangements made yesterday by dr sen but logistics prevented actual d /c until today. pt seen and evaluated, case, labs, micro reviewed. pt is stable for d/c at this time, family has arrived and needs resume [facility] upon arrival back in [place]. He already has all DME needed, [facility] coming to the home and good f/u with multiple providers back in [place]. he is awake and alert with persistent dense Rt hemiplegia and at least mild expressive aphasia, multiple carbuncles and furuncles encompassing multiple hair follicles, chest is clear to auscultation, cardio is RRR without murmur. total 35 minutes spent evaluating the pt and discussing plan with fmaily.
== END 2016-11-01 12:45 | disposition home health service (06) | DRG 698 ==
LOC: ER 06:03 → EH 11:13 → 3S 14:20
PROVIDERS: ADMIT Hospitalist; ATTEND Hospitalist
DX: T83.511A Infection and inflammatory reaction due to indwelling urethral catheter, initial encounter (principal); A41.9 Sepsis, unspecified organism; E87.2 Acidosis; I69.851 Hemiplegia and hemiparesis following other cerebrovascular disease affecting right dominant side; N39.0 Urinary tract infection, site not specified; B95.62 Methicillin resistant Staphylococcus aureus infection as the cause of diseases classified elsewhere; G40.909 Epilepsy, unspecified, not intractable, without status epilepticus; I69.920 Aphasia following unspecified cerebrovascular disease; I95.9 Hypotension, unspecified; N31.9 Neuromuscular dysfunction of bladder, unspecified; E86.0 Dehydration; Z79.01 Long term (current) use of anticoagulants; Z79.899 Other long term (current) drug therapy; Z87.891 Personal history of nicotine dependence; Z86.79 Personal history of other diseases of the circulatory system; Z82.49 Family history of ischemic heart disease and other diseases of the circulatory system
CPT/HCPCS: 36415; 71020; 74177; 80048; 80053; 81001; 82803; 83605; 83690; 83735; 85025; 85027; 85610; 87040; 87086; 87088; 87186; 93005; 93010; 96365; 96366; 96368; 99291; J0696; J0878; J1956; J3490; J7030

== ENCOUNTER → 2016-12-05 | Outpatient (CLI) | payer OTHER ==
[2016-12-05 15:05] LABS: PROTHROMBIN TIME 23.1 SEC (11.4-15.4)
== END ==
LOC: OD 13:56
PROVIDERS: ATTEND Student in an Organized Health Care Education/Training Program
DX: Z51.81 Encounter for therapeutic drug level monitoring (principal); Z79.01 Long term (current) use of anticoagulants
CPT/HCPCS: 36415; 85610

== ENCOUNTER → 2016-12-09 | Outpatient (CLI) | payer OTHER ==
[2016-12-09 16:18] LABS: PROTHROMBIN TIME 20.5 SEC (11.4-15.4)
== END ==
LOC: OD 14:51
PROVIDERS: ATTEND Student in an Organized Health Care Education/Training Program
DX: Z51.81 Encounter for therapeutic drug level monitoring (principal); Z79.01 Long term (current) use of anticoagulants
CPT/HCPCS: 36415; 85610

== ENCOUNTER 2017-03-02 10:39 | Inpatient (IN) | payer OTHER ==
[2017-03-02 11:25] LABS: ABSOLUTE EOSINOPHILS # (AUTO) 0.1 10^3/uL (0.0-0.6); ABSOLUTE LYMPHOCYTES (AUTO) 1.6 10^3/uL (0.5-4.7); ABSOLUTE MONOCYTES (AUTO) 0.4 10^3/uL (0.1-1.4); ABSOLUTE NEUT (AUTO) 4.5 10^3/uL (1.7-8.2); BASOPHILS % (AUTO) 0.5 % (0-2); EOSINOPHILS % (AUTO) 1.8 % (0-6); HEMATOCRIT 40.8 % (37.9-51.0); HEMOGLOBIN 14.3 g/dL (13.5-17.0); HGB HCT DIFFERENCE 2.1; LYMPHOCYTES % (AUTO) 24.2 % (13-45); MEAN CORPUSCULAR HEMOGLOBIN 31.3 pg (27.0-33.4); MEAN CORPUSCULAR VOLUME 89 fl (80-97); MONOCYTES % (AUTO) 5.5 % (3-13); RED BLOOD COUNT 4.57 10^6/uL (4.35-5.55); RED CELL DISTRIBUTION WIDTH 14.7 % (11.5-14.0); VENOUS BLOOD BASE EXCESS 0.9 mmol/L; VENOUS BLOOD HCO3 25.9 mmol/L (20-32); VENOUS BLOOD PCO2 42.5 mmHg (35-63); VENOUS BLOOD PH 7.4 (7.30-7.42); WHITE BLOOD COUNT 6.6 10^3/uL (4.0-10.5)
[2017-03-02 11:31] LABS: PROTHROMBIN TIME 19.3 SEC (11.4-15.4)
[2017-03-02 11:42] LABS: ALANINE AMINOTRANSFERASE 41 U/L (21-72); ALBUMIN 3.8 g/dL (3.5-5.0); ALKALINE PHOSPHATASE 94 U/L (38-126); ANION GAP 10 (5-19); ASPARTATE AMINO TRANSFERASE 20 U/L (17-59); BILIRUBIN,DIRECT 0.3 mg/dL (0.0-0.4); BILIRUBIN,TOTAL 0.5 mg/dL (0.2-1.3); BLOOD UREA NITROGEN 11 mg/dL (7-20); CALCIUM 9.8 mg/dL (8.4-10.2); CARBON DIOXIDE 25 mmol/L (22-30); CHLORIDE 109 mmol/L (98-107); CREATININE RESULT 0.79 mg/dL (0.52-1.25); GLUCOSE 105 mg/dL (75-110); POTASSIUM 4.2 mmol/L (3.6-5.0); SODIUM 144.4 mmol/L (137-145); TOTAL PROTEIN 6.9 g/dL (6.3-8.2)
--- NOTE | 2017-03-02 11:53 | ER Document Report ---
ED General - General Chief Complaint: Urinary Problem Stated Complaint: URINARY ISSUES Time Seen by Provider: 03/02/17 11:16 TRAVEL OUTSIDE OF THE [place] IN LAST 30 DAYS: No - HPI Notes: Patient is a 62-year-old male with a history of spinal cord injury 1982, CVA in 2016, recurrent UTI presents to the ED via EMS with c/o AMS, ?UTI, decreased fluid/food intake x1 day. states that he is not at baseline cognitively. Pt does not remember things and has been repeating himself. She states that they have been to the hospital several times per year for UTI's. He does take a daily antibiotic, but she cannot remember what the medication is. has noticed decreased urinary output as well. 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 Pt is normally nonambulatory and contractured to the RUE. He has not been c/o any new pain or discomfort. She has not noticed any respiratory distress. Denies any headache, fever, head injury, neck pain, URI, sore throat, chest pain, palpitations, syncope, cough, shortness of breath, wheeze, dyspnea, abdominal pain, nausea/vomiting/diarrhea, or rash. Pt does have a h/o MRSA in the past. No IV drug use. - Related Data Allergies/Adverse Reactions: No Known Allergies Allergy (Verified 03/02/17 12:47) Past Medical History - Social History Smoking Status: Unknown if Ever Smoked Family History: Hypertension Neurological Medical History: Reports: Hx Seizures Psychiatric Medical History: Reports: Hx Depression Review of Systems - Review of Systems Notes: REVIEW OF SYSTEMS: Per as well. Pt can make clear answers intermittently. CONSTITUTIONAL : Denies fever, chills, or sweats. Denies recent illness. EENT: Denies eye, ear, throat, or mouth pain or symptoms. Denies nasal or sinus congestion or discharge. Denies throat, tongue, or mouth swelling or difficulty swallowing. CARDIOVASCULAR: Denies chest pain. Denies palpitations or racing or irregular heart beat. Denies ankle edema. RESPIRATORY: Denies cough, cold, or chest congestion. Denies shortness of breath, difficulty breathing, or wheezing. GASTROINTESTINAL: Denies abdominal pain or distention. Denies nausea, vomiting , or diarrhea. Denies blood in vomitus, stools, or per rectum. Denies black, tarry stools. Denies constipation. GENITOURINARY: see hpi MUSCULOSKELETAL: see hpi SKIN: Denies rash, lesions or sores. HEMATOLOGIC : Denies easy bruising or bleeding. LYMPHATIC: Denies swollen, enlarged glands. NEUROLOGICAL: see hpi PSYCHIATRIC: Denies anxiety or stress. Denies depression, suicidal ideation, or homicidal ideation. ALL OTHER SYSTEMS REVIEWED AND NEGATIVE. Dictation was performed using bizsol voice recognition software Physical Exam - Vital signs Vitals: Temp Pulse Resp BP Pulse Ox 97.5 F 63 22 H 142/71 H 96 03/02/17 10:56 03/02/17 10:56 03/02/17 10:56 03/02/17 10:56 03/02/17 10:56 Notes: PHYSICAL EXAMINATION: GENERAL: Well-appearing, well-nourished and in no acute distress. Alert, cooperative. Not oriented. HEAD: Atraumatic, normocephalic. EYES: Pupils equal round and reactive to light, extraocular movements intact, sclera anicteric, conjunctiva are normal. ENT: Nares patent and without discharge. oropharynx clear without exudates. No tonsilar hypertrophy or erythema. Moist mucous membranes. No sinus tenderness. NECK: Normal range of motion, supple without lymphadenopathy. Non-tender. LUNGS: Breath sounds clear to auscultation bilaterally and equal. No wheezes rales or rhonchi. HEART: Regular rate and rhythm without murmurs, rubs, gallops. ABDOMEN: Soft, nontender, nondistended abdomen. No guarding, no rebound. No masses appreciated. Normal bowel sounds present. No CVA tenderness bilaterally. Musculoskeletal: RUE contractured. Non-ambulatory/movement to LE's b/l. FROM to LUE. Extremities: No cyanosis, clubbing, or edema b/l. Peripheral pulses 2+. Capillary refill less than 3 seconds. NEUROLOGICAL: Cranial nerves grossly intact. Speech is clear and coherent, but pt repeats himself and at times does not answer questions appropriately. SKIN: Warm, Dry, normal turgor, no rashes or lesions noted. Course - Re-evaluation Re-evalutation: 03/02/17 12:[address] per Radiologist phone call: no acute changes. Chronic lg left MCA damage/occlusion, consistent with prev CVA. 03/02/17 13:19 UA shows infection Pt continues to be altered cardiac enzymes negative along with EKG w. no significant cardiac history. Other labs unremarkable Started Bactrim IV according to prev MRSA growth Reviewed with Dr. Perez who accepted patient to med floor. - Vital Signs Vital signs: Temp Pulse Resp BP Pulse Ox 97.5 F 63 12 159/92 H 98 03/02/17 10:56 03/02/17 10:56 03/02/17 12:32 03/02/17 12:32 03/02/17 12:32 - Laboratory Result Diagrams: 03/02/17 11:08 03/02/17 11:08 Laboratory results interpreted by me: 03/02/17 03/02/17 03/02/17 11:08 11:08 11:08 RDW 14.7 H PT 19.3 H Chloride 109 H Creatine Kinase Urine Protein Urine Blood Urine Urobilinogen Ur Leukocyte Esterase 03/02/17 03/02/17 11:40 12:26 RDW PT Chloride Creatine Kinase 40 L Urine Protein 100 H Urine Blood MODERATE H Urine Urobilinogen 2.0 H Ur Leukocyte Esterase LARGE H Discharge - Discharge Clinical Impression: UTI (urinary tract infection) Qualifiers: Urinary tract infection type: site unspecified Hematuria presence: with hematuria Qualified Code(s): N39.0 - Urinary tract infection, site not specified Altered mental status Qualifiers: Altered mental status type: unspecified Qualified Code(s): R41.82 - Altered mental status, unspecified Condition: Stable Disposition: ADMITTED INPATIENT Admitting Provider: Hospitalist - Dr. Perez Unit Admitted: Medical Floor
--- NOTE | 2017-03-02 12:15 | RADIOLOGY REPORT (SQ) ---
EXAM DESCRIPTION: CHEST SINGLE VIEW COMPLETED DATE/TIME: 03/02/2017 12:02 pm REASON FOR STUDY: AMS COMPARISON: Chest films 10/29/2016 EXAM PARAMETERS: NUMBER OF VIEWS: One view. TECHNIQUE: Single frontal radiographic view of the chest acquired. RADIATION DOSE: NA LIMITATIONS: Slight rotation towards the SERBIAN position FINDINGS: LUNGS AND PLEURA: No opacities, masses or pneumothorax. No pleural effusion. MEDIASTINUM AND HILAR STRUCTURES: No masses. Contour normal. HEART AND VASCULAR STRUCTURES: Heart normal in size. Normal vasculature. BONES: No acute findings. HARDWARE: None in the chest. OTHER: No other significant finding. IMPRESSION: NO ACUTE RADIOGRAPHIC FINDING IN THE CHEST. TECHNICAL DOCUMENTATION: JOB ID: [id number]
--- NOTE | 2017-03-02 12:24 | RADIOLOGY REPORT (SQ) ---
EXAM DESCRIPTION: CT HEAD WITHOUT COMPLETED DATE/TIME: 03/02/2017 12:05 pm REASON FOR STUDY: AMS COMPARISON: None. TECHNIQUE: Axial images acquired through the brain without intravenous contrast. Images reviewed wi th bone, brain and subdural windows. Images stored on PACS. All CT scanners at this facility use dose modulation, iterative reconstruction, and/or weight based d osing when appropriate to reduce radiation dose to as low as reasonably achievable (ALARA). [facility]: Dose Right [facility]: CareDose [facility]: Dose Right [facility]: Teradose 4D [facility]: Smart Technologies RADIATION DOSE: Up-to-date CT equipment and radiation dose reduction techniques were employed. CTDIv ol: 64.6 mGy. DLP: 1163 mGy-cm. mGy. LIMITATIONS: None. FINDINGS: VENTRICLES: Normal size and contour. 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 There is atrophy of the left middle cerebral peduncle, and slight asymmetric enlargement of the left body lateral ventricle from encephalomalacia. No CT evidence of acute large territory ischemic change, acute intracranial hemorrhage, mass effect, or midline shift. CEREBELLUM: No masses. No hemorrhage. No alteration of density. No evidence for acute infarction. EXTRAAXIAL SPACES: No fluid collections. No masses. ORBITS AND GLOBE: No intra- or extraconal masses. Normal contour of globe without masses. CALVARIUM: No fracture. PARANASAL SINUSES: No fluid or mucosal thickening. SOFT TISSUES: No mass or hematoma. OTHER: No other significant finding. IMPRESSION: Large old left MCA distribution infarct. No acute changes. EVIDENCE OF ACUTE STROKE: NO. COMMENT: Quality ID # [id number]: Final reports with documentation of one or more dose reduction techniques (e.g., Automated exposure control, adjustment of the mA and/or kV according to patient size, use of iterative reconstruction technique) TECHNICAL DOCUMENTATION: JOB ID: [id number] [employer]- All Rights Reserved
[2017-03-02 12:55] LABS: CREATINE KINASE MB 0.87 ng/mL (<4.55)
[2017-03-02 12:57] LABS: TROPONIN I < 0.012 ng/mL
[2017-03-02 13:05] LABS: APPEARANCE,URINE CLOUDY; BILIRUBIN,URINE NEGATIVE (NEGATIVE); CALCIUM OXALATE CRYSTALS,URINE FEW /HPF; GLUCOSE, URINE NEGATIVE (NEGATIVE); KETONES,URINE NEGATIVE (NEGATIVE); LEUKOCYTE ESTERASE,URINE LARGE (NEGATIVE); NITRITE,URINE NEGATIVE (NEGATIVE); PROTEIN,URINE 100 mg/dL (NEGATIVE); URINE SPECIFIC GRAVITY 1.012
[2017-03-02] MEDS ORDERED: SULFAMETHOX/TRIMETH 800-160 MG/10 ML VIAL IV ONE (13:11)
[2017-03-02] MEDS ORDERED: NORMAL SALINE 1000 ML 1,000 ML IV PRN ×2 (13:16→14:24)
[2017-03-02] MEDS ORDERED: ONDANSETRON 4 MG TAB.RAPDIS PO PRN (14:24)
[2017-03-02] MEDS ORDERED: ONDANSETRON HCL INJ/PF 4 MG/2 ML SDV IV PRN (14:24)
[2017-03-02] MEDS ORDERED: IPRATROPIUM/ALBUTEROL 0.5-2.5 MG/3 ML AMPUL NEB PRN (14:24)
[2017-03-02] MEDS ORDERED: VANCOMYCIN HCL 0 MG in DEXTROSE 5%-WATER 250 ML IV NR (14:45)
--- NOTE | 2017-03-02 14:45 | PDOC H&P ---
History of Present Illness Admission Date/PCP: 03/02/17 13:29 Patient complains of: Confusion History of Present Illness: HUMBERTO GARCIA is a 62 year old male with a history of spinal cord injury 1982 and a history of CVA 2015 who has chronic suprapubic catheter who presents with altered mental status. Patient was brought in by his . She was not available at the time of my interview and this is obtained from the patient and from the emergency room physician. Reported that the patient is more confused than he usually is. This been going on for just 1 day. There has not been any fevers or chills. He has had previous urinary tract infections. Last time he had when he grew out MRSA from his urine. The patient denies any symptoms to me. Past Medical History Pulmonary Medical History: Reports: None EENT Medical History: Reports: None Neurological Medical History: Reports: Ischemic CVA, Seizures Endocrine Medical History: Reports: None Renal/ Medical History: Reports: None Malignancy Medical History: Reports: None GI Medical History: Reports: None Psychiatric Medical History: Reports: Depression Infectious Medical History: Reports: Methicillin-Resistant Staph Aureus Past Surgical History Past Surgical History: Reports: Orthopedic Surgery - spinal fusion Social History Information Source: Patient, Emergency Med Personnel, [facility] Records Lives with: Spouse/Significant other Smoking Status: Former Smoker Frequency of Alcohol Use: None Hx Recreational Drug Use: No Drugs: None Hx Prescription Drug Abuse: No - Advance Directive Resuscitation Status: Full Code Surrogate healthcare decision maker:: His Family History Family History: Hypertension Parental Family History Reviewed: Yes Children Family History Reviewed: No Sibling(s) Family History Reviewed.: No Medication/Allergy Home Medications: Amitriptyline HCl [Elavil 25 mg Tablet] 25 mg PO QHS 03/02/17 Linaclotide [Linzess] 145 mcg PO DAILY 03/02/17 Mirtazapine [Remeron] 30 mg PO QHS 03/02/17 Warfarin Sodium [Coumadin 1 mg Tablet] 1 mg PO DAILY 03/02/17 Allergies/Adverse Reactions: No Known Allergies Allergy (Verified 03/02/17 12:47) Review of Systems Constitutional: ABSENT: chills, fever(s), headache(s), weight gain, weight loss Eyes: ABSENT: visual disturbances Ears: ABSENT: hearing changes Cardiovascular: ABSENT: chest pain, dyspnea on exertion, edema, orthropnea, palpitations Respiratory: ABSENT: cough, hemoptysis Gastrointestinal: ABSENT: abdominal pain, constipation, diarrhea, hematemesis, hematochezia, nausea, vomiting Genitourinary: PRESENT: other - Cloudy urine from his suprapubic catheter. Musculoskeletal: ABSENT: joint swelling Integumentary: ABSENT: rash, wounds Neurological: PRESENT: other - Right-sided hemiparesis with expressive aphasia Psychiatric: ABSENT: anxiety, depression Hematologic/Lymphatic: ABSENT: easy bleeding, easy bruising Physical Exam Vital Signs: Temp Pulse Resp BP Pulse Ox 97.5 F 63 11 L 152/96 H 97 03/02/17 10:56 03/02/17 10:56 03/02/17 14:12 03/02/17 14:12 03/02/17 14:12 Intake & Output 03/01/17 03/02/17 03/03/17 06:59 06:59 06:59 Intake Total 3000 Balance 3000 General appearance: PRESENT: no acute distress Head exam: PRESENT: atraumatic, normocephalic Eye exam: PRESENT: conjunctiva pink, EOMI, PERRLA. ABSENT: scleral icterus Ear exam: PRESENT: normal external ear exam Mouth exam: PRESENT: moist, tongue midline Neck exam: PRESENT: other - Surgical scar on his right anterior neck.. ABSENT: carotid bruit, JVD, lymphadenopathy, thyromegaly Respiratory exam: PRESENT: clear to auscultation tessie. ABSENT: rales, rhonchi, wheezes Cardiovascular exam: PRESENT: RRR. ABSENT: diastolic murmur, rubs, systolic murmur Pulses: PRESENT: normal dorsalis pedis pul Vascular exam: PRESENT: normal capillary refill GI/Abdominal exam: PRESENT: normal bowel sounds, soft, other - Suprapubic catheter in place.. ABSENT: distended, guarding, mass, organolmegaly, rebound, tenderness Rectal exam: PRESENT: deferred Extremities exam: ABSENT: calf tenderness, clubbing, pedal edema Neurological exam: PRESENT: alert, awake, oriented to person, oriented to place , aphasic, other - Right-sided hemiparesis.. ABSENT: oriented to time, oriented to situation Psychiatric exam: PRESENT: appropriate affect Skin exam: PRESENT: other - Erythematous rash present on his face and neck consistent with eczema. Results Impressions: Chest X-Ray 03/02/17 11:44 IMPRESSION: NO ACUTE RADIOGRAPHIC FINDING IN THE CHEST. 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 No acute changes. EVIDENCE OF ACUTE STROKE: NO. Assessment & Plan - Diagnosis (1) Altered mental status Qualifiers: Altered mental status type: unspecified Qualified Code(s): R41.82 - Altered mental status, unspecified Is this a current diagnosis for this admission?: Yes Plan: Patient has encephalopathy from a urinary tract infection. (2) UTI (urinary tract infection) due to urinary indwelling Mcguire catheter Qualifiers: Is this a current diagnosis for this admission?: Yes Plan: Patient has been given Bactrim in the emergency room. We will start on Rocephin and vancomycin. 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 (3) History of Coumadin therapy Is this a current diagnosis for this admission?: Yes Plan: It is not clear to me why this patient is on Coumadin from the chart. Will need to discuss with his . We will continue with his current home dose. He is somewhat subtherapeutic on his Coumadin level at this time. We will monitor with daily PT/INRs. (4) History of spinal cord injury Is this a current diagnosis for this admission?: Yes (5) Seizure disorder Is this a current diagnosis for this admission?: Yes Plan: Patient denies having any seizures recently. - Time Time Spent: 50 to 70 Minutes - Inpatient Certification Medical Necessity: Need For IV Fluids, Need for IV Antibiotics
[2017-03-02] MEDS ORDERED: ENOXAPARIN SODIUM INJ 40 MG/0.4 ML DISP.SYRIN SUBCUT ONE (15:00)
[2017-03-02] MEDS ORDERED: NA PHOS,M-B/NA PHOS,DI-BA (ADULT) 133 ML ENEMA PR ONE (16:01)
[2017-03-02 16:37] LABS: PROTHROMBIN TIME 20.2 SEC (11.4-15.4)
[2017-03-02] MEDS ORDERED: INFLUENZA ADLT QUAD (36MOS+) 2017-18 VAC 0.5 ML SYR IM PRN (16:39)
[2017-03-02] MEDS: CEFTRIAXONE 1 GM/D5W RTU 1 GM/50 ML RTUPB IV SCH (17:34)
[2017-03-02] MEDS: VANCOMYCIN HCL 750 MG in DEXTROSE 5%-WATER 250 ML IV SCH (19:00)
--- NOTE | 2017-03-02 19:58 | EKG REPORT ---
SEVERITY:- BORDERLINE ECG - SINUS RHYTHM BORDERLINE PROLONGED QT INTERVAL : Confirmed by: Jayesh Nieves MD 02-Mar-2017 19:57:33
[2017-03-02] MEDS: AMITRIPTYLINE HCL 25 MG TABLET PO SCH (21:17)
[2017-03-02] MEDS: FAMOTIDINE 20 MG TABLET PO SCH (21:17)
[2017-03-02] MEDS: MIRTAZAPINE 15 MG TABLET PO SCH (21:18)
[2017-03-03] MEDS: ACETAMINOPHEN 325 MG TABLET PO PRN (00:04)
[2017-03-03] MEDS: VANCOMYCIN HCL 750 MG in DEXTROSE 5%-WATER 250 ML IV SCH ×3 (01:21→18:35)
[2017-03-03 05:46] LABS: ABSOLUTE BASOPHILS # (AUTO) 0.1 10^3/uL (0.0-0.2); ABSOLUTE EOSINOPHILS # (AUTO) 0.5 10^3/uL (0.0-0.6); ABSOLUTE MONOCYTES (AUTO) 0.4 10^3/uL (0.1-1.4); ABSOLUTE NEUT (AUTO) 2.6 10^3/uL (1.7-8.2); BASOPHILS % (AUTO) 1.2 % (0-2); EOSINOPHILS % (AUTO) 9.3 % (0-6); HEMATOCRIT 36.3 % (37.9-51.0); HEMOGLOBIN 12.7 g/dL (13.5-17.0); HGB HCT DIFFERENCE 1.8; LYMPHOCYTES % (AUTO) 35.6 % (13-45); MEAN CORPUSCULAR HEMOGLOBIN 31.3 pg (27.0-33.4); MEAN CORPUSCULAR VOLUME 89 fl (80-97); MONOCYTES % (AUTO) 6.8 % (3-13); RED BLOOD COUNT 4.07 10^6/uL (4.35-5.55); RED CELL DISTRIBUTION WIDTH 14.4 % (11.5-14.0); SEGMENTED NEUTROPHILS % (AUTO) 47.1 % (42-78); WHITE BLOOD COUNT 5.6 10^3/uL (4.0-10.5)
[2017-03-03 06:15] LABS: ANION GAP 9 (5-19); BLOOD UREA NITROGEN 6 mg/dL (7-20); CARBON DIOXIDE 22 mmol/L (22-30); CHLORIDE 115 mmol/L (98-107); CREATININE RESULT 0.76 mg/dL (0.52-1.25); GLUCOSE 82 mg/dL (75-110); POTASSIUM 3.7 mmol/L (3.6-5.0); SODIUM 145.6 mmol/L (137-145)
[2017-03-03] MEDS: FAMOTIDINE 20 MG TABLET PO SCH ×2 (09:57→21:31)
[2017-03-03] MEDS: ENOXAPARIN SODIUM INJ 40 MG/0.4 ML DISP.SYRIN SUBCUT SCH (09:59)
[2017-03-03] MEDS ORDERED: (PENDING PHARMACY ID) (Linaclotide [Linzess] 145 MCG) PO SCH (10:00)
[2017-03-03] MEDS ORDERED: WARFARIN SODIUM 1 MG TABLET PO SCH (10:00)
[2017-03-03] MEDS ORDERED: (PENDING PHARMACY ID) (Warfarin Sodium 1 MG) PO SCH (10:00)
--- NOTE | 2017-03-03 12:08 | PDOC PROGRESS REPORT ---
Subjective Progress Note for:: 03/03/17 Subjective:: Patient denies any complaints. States he wants to go home. Physical Exam Vital Signs: Temp Pulse Resp BP Pulse Ox 97.5 F 69 20 123/73 97 03/02/17 23:52 03/03/17 07:00 03/02/17 23:52 03/02/17 23:52 03/02/17 23:52 Intake & Output 03/02/17 03/03/17 03/04/17 06:59 06:59 06:59 Intake Total 2521 120 Output Total 2400 600 Balance 121 -480 Weight 97 kg General appearance: PRESENT: no acute distress Eye exam: PRESENT: conjunctiva pink. ABSENT: scleral icterus Mouth exam: PRESENT: moist, tongue midline Neck exam: ABSENT: JVD Respiratory exam: PRESENT: clear to auscultation tessie. ABSENT: rales, rhonchi, wheezes Cardiovascular exam: PRESENT: RRR. ABSENT: diastolic murmur, rubs, systolic murmur GI/Abdominal exam: PRESENT: normal bowel sounds, soft. ABSENT: distended, guarding, mass, organolmegaly, rebound, tenderness Extremities exam: ABSENT: calf tenderness, clubbing, pedal edema Neurological exam: PRESENT: alert, awake, oriented to person, oriented to place , oriented to time, oriented to situation, motor sensory deficit - Right-sided hemiparesis with expressive aphasia. Psychiatric exam: PRESENT: appropriate affect Skin exam: PRESENT: dry, intact, warm. ABSENT: cyanosis, rash Results Laboratory Results: 03/03/17 05:21 03/03/17 05:21 03/03/17 03/03/17 05:21 05:21 WBC 5.6 RBC 4.07 L Hgb 12.7 L Hct 36.3 L MCV 89 MCH 31.3 MCHC 35.0 RDW 14.4 H Plt Count 179 Seg Neutrophils % 47.1 Lymphocytes % 35.6 Monocytes % 6.8 Eosinophils % 9.3 H Basophils % 1.2 Absolute Neutrophils 2.6 Absolute Lymphocytes 2.0 Absolute Monocytes 0.4 Absolute Eosinophils 0.5 Absolute Basophils 0.1 Sodium 145.6 H Potassium 3.7 Chloride 115 H Carbon Dioxide 22 Anion Gap 9 BUN 6 L Creatinine 0.76 Est GFR ( Amer) > 60 Est GFR (Non-Af Amer) > 60 Glucose 82 Calcium 9.0 Impressions: Chest X-Ray 03/02/17 11:44 IMPRESSION: NO ACUTE RADIOGRAPHIC FINDING IN THE CHEST. 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 No acute changes. EVIDENCE OF ACUTE STROKE: NO. Assessment & Plan - Diagnosis (1) Altered mental status Qualifiers: Altered mental status type: unspecified Qualified Code(s): R41.82 - Altered mental status, unspecified Is this a current diagnosis for this admission?: Yes Plan: Patient had encephalopathy from a urinary tract infection. He is much more alert and oriented today. (2) UTI (urinary tract infection) due to urinary indwelling Mcguire catheter Qualifiers: Is this a current diagnosis for this admission?: Yes Plan: Patient has been given Bactrim in the emergency room. We will start on Rocephin and vancomycin. 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 (3) History of Coumadin therapy Is this a current diagnosis for this admission?: Yes Plan: It is not clear to me why this patient is on Coumadin from the chart. Will need to discuss with his . We will continue with his current home dose. He is somewhat subtherapeutic on his Coumadin level at this time. We will monitor with daily PT/INRs. (4) History of spinal cord injury Is this a current diagnosis for this admission?: Yes (5) Seizure disorder Is this a current diagnosis for this admission?: Yes Plan: Patient denies having any seizures recently. - Time Time Spent with patient: 25-34 minutes - Inpatient Certification Medical Necessity: Need for IV Antibiotics
[2017-03-03 15:18] LABS: PROTHROMBIN TIME 22.6 SEC (11.4-15.4)
[2017-03-03] MEDS: CEFTRIAXONE 1 GM/D5W RTU 1 GM/50 ML RTUPB IV SCH (18:34)
[2017-03-03] MEDS: MIRTAZAPINE 15 MG TABLET PO SCH (21:31)
[2017-03-03] MEDS: AMITRIPTYLINE HCL 25 MG TABLET PO SCH (21:32)
[2017-03-04] MEDS: VANCOMYCIN HCL 750 MG in DEXTROSE 5%-WATER 250 ML IV SCH (01:03)
[2017-03-04 04:35] LABS: ABSOLUTE BASOPHILS # (AUTO) 0.1 10^3/uL (0.0-0.2); ABSOLUTE EOSINOPHILS # (AUTO) 0.6 10^3/uL (0.0-0.6); ABSOLUTE LYMPHOCYTES (AUTO) 1.6 10^3/uL (0.5-4.7); ABSOLUTE MONOCYTES (AUTO) 0.5 10^3/uL (0.1-1.4); ABSOLUTE NEUT (AUTO) 3.6 10^3/uL (1.7-8.2); BASOPHILS % (AUTO) 0.9 % (0-2); EOSINOPHILS % (AUTO) 8.7 % (0-6); HEMATOCRIT 38.1 % (37.9-51.0); HEMOGLOBIN 13.6 g/dL (13.5-17.0); HGB HCT DIFFERENCE 2.7; LYMPHOCYTES % (AUTO) 25.9 % (13-45); MEAN CORPUSCULAR HEMOGLOBIN 31.6 pg (27.0-33.4); MEAN CORPUSCULAR HGB CONC 35.7 g/dL (32.0-36.0); MEAN CORPUSCULAR VOLUME 88 fl (80-97); MONOCYTES % (AUTO) 7.3 % (3-13); RED BLOOD COUNT 4.31 10^6/uL (4.35-5.55); RED CELL DISTRIBUTION WIDTH 14.1 % (11.5-14.0); SEGMENTED NEUTROPHILS % (AUTO) 57.2 % (42-78); WHITE BLOOD COUNT 6.4 10^3/uL (4.0-10.5)
[2017-03-04 05:00] LABS: ANION GAP 13 (5-19); BLOOD UREA NITROGEN 6 mg/dL (7-20); CALCIUM 9.5 mg/dL (8.4-10.2); CARBON DIOXIDE 20 mmol/L (22-30); CHLORIDE 109 mmol/L (98-107); CREATININE RESULT 0.81 mg/dL (0.52-1.25); GLUCOSE 99 mg/dL (75-110); POTASSIUM 3.7 mmol/L (3.6-5.0)
--- NOTE | 2017-03-04 10:24 | PDOC PROGRESS REPORT ---
Subjective Progress Note for:: 03/04/17 Subjective:: Patient denies any complaints. Physical Exam Vital Signs: Temp Pulse Resp BP Pulse Ox 97.5 F 88 16 130/75 H 98 03/04/17 08:17 03/04/17 08:39 03/04/17 08:39 03/04/17 08:17 03/04/17 08:39 Intake & Output 03/03/17 03/04/17 03/05/17 06:59 06:59 06:59 Intake Total 2521 2535 Output Total 2400 3650 Balance 121 -1115 Weight 97 kg 97 kg General appearance: PRESENT: no acute distress Eye exam: PRESENT: conjunctiva pink. ABSENT: scleral icterus Mouth exam: PRESENT: moist, tongue midline Neck exam: ABSENT: JVD Respiratory exam: PRESENT: clear to auscultation tessie. ABSENT: rales, rhonchi, wheezes Cardiovascular exam: PRESENT: RRR. ABSENT: diastolic murmur, rubs, systolic murmur GI/Abdominal exam: PRESENT: normal bowel sounds, soft. ABSENT: distended, guarding, mass, organolmegaly, rebound, tenderness Extremities exam: ABSENT: calf tenderness, clubbing, pedal edema Neurological exam: PRESENT: alert, awake, oriented to person, oriented to place , oriented to time, oriented to situation, CN II-XII grossly intact, motor sensory deficit - Right sided hemiparesis with expressive aphasia Psychiatric exam: PRESENT: appropriate affect Skin exam: PRESENT: dry, intact, warm. ABSENT: cyanosis, rash Results Laboratory Results: 03/04/17 03:48 03/04/17 03:48 03/04/17 03/04/17 03:48 03:48 WBC 6.4 RBC 4.31 L Hgb 13.6 Hct 38.1 MCV 88 MCH 31.6 MCHC 35.7 RDW 14.1 H Plt Count 185 Seg Neutrophils % 57.2 Lymphocytes % 25.9 Monocytes % 7.3 Eosinophils % 8.7 H Basophils % 0.9 Absolute Neutrophils 3.6 Absolute Lymphocytes 1.6 Absolute Monocytes 0.5 Absolute Eosinophils 0.6 Absolute Basophils 0.1 Sodium 142.0 Potassium 3.7 Chloride 109 H Carbon Dioxide 20 L Anion Gap 13 BUN 6 L Creatinine 0.81 Est GFR ( Amer) > 60 Est GFR (Non-Af Amer) > 60 Glucose 99 Calcium 9.5 Impressions: Chest X-Ray 03/02/17 11:44 IMPRESSION: NO ACUTE RADIOGRAPHIC FINDING IN THE CHEST. 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 No acute changes. EVIDENCE OF ACUTE STROKE: NO. Assessment & Plan - Diagnosis (1) Altered mental status Qualifiers: Altered mental status type: unspecified Qualified Code(s): R41.82 - Altered mental status, unspecified Is this a current diagnosis for this admission?: Yes Plan: Patient had encephalopathy from a urinary tract infection. Resolved (2) UTI (urinary tract infection) due to urinary indwelling Mcguire catheter Qualifiers: Is this a current diagnosis for this admission?: Yes Plan: Cultures are growing out Pseudomonas. 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 Will switch to Levaquin p.o. as he is improving. (3) History of Coumadin therapy Is this a current diagnosis for this admission?: Yes Plan: We will continue with his current home dose. He is still somewhat subtherapeutic on his Coumadin level at this time. We will monitor with daily PT/INRs. (4) History of spinal cord injury Is this a current diagnosis for this admission?: Yes (5) Seizure disorder Is this a current diagnosis for this admission?: Yes Plan: Patient denies having any seizures recently. - Time Time Spent with patient: 15-24 minutes - Inpatient Certification Medical Necessity: Need for IV Antibiotics - Plan Summary Plan Summary: If he continues to improve we can hopefully discharge home tomorrow.
[2017-03-04] MEDS ORDERED: LEVOFLOXACIN 750 MG TABLET PO ONE (11:00)
[2017-03-04] MEDS: FAMOTIDINE 20 MG TABLET PO SCH ×2 (11:33→22:41)
[2017-03-04] MEDS: ACETAMINOPHEN 325 MG TABLET PO PRN ×2 (11:33→18:27)
[2017-03-04] MEDS: ENOXAPARIN SODIUM INJ 40 MG/0.4 ML DISP.SYRIN SUBCUT SCH (11:33)
[2017-03-04] MEDS: AMITRIPTYLINE HCL 25 MG TABLET PO SCH (22:41)
[2017-03-04] MEDS: MIRTAZAPINE 15 MG TABLET PO SCH (22:41)
[2017-03-04] MEDS: WARFARIN SODIUM 1 MG TABLET PO SCH (22:42)
[2017-03-05 04:45] LABS: ABSOLUTE EOSINOPHILS # (AUTO) 0.3 10^3/uL (0.0-0.6); ABSOLUTE LYMPHOCYTES (AUTO) 1.4 10^3/uL (0.5-4.7); ABSOLUTE MONOCYTES (AUTO) 0.5 10^3/uL (0.1-1.4); ABSOLUTE NEUT (AUTO) 3.3 10^3/uL (1.7-8.2); BASOPHILS % (AUTO) 0.8 % (0-2); EOSINOPHILS % (AUTO) 4.8 % (0-6); HEMATOCRIT 39.3 % (37.9-51.0); HEMOGLOBIN 14.1 g/dL (13.5-17.0); LYMPHOCYTES % (AUTO) 26.4 % (13-45); MEAN CORPUSCULAR HEMOGLOBIN 31.2 pg (27.0-33.4); MEAN CORPUSCULAR HGB CONC 35.9 g/dL (32.0-36.0); MEAN CORPUSCULAR VOLUME 87 fl (80-97); MONOCYTES % (AUTO) 8.3 % (3-13); RED BLOOD COUNT 4.51 10^6/uL (4.35-5.55); RED CELL DISTRIBUTION WIDTH 14.4 % (11.5-14.0); SEGMENTED NEUTROPHILS % (AUTO) 59.7 % (42-78); WHITE BLOOD COUNT 5.5 10^3/uL (4.0-10.5)
[2017-03-05 05:02] LABS: ANION GAP 10 (5-19); BLOOD UREA NITROGEN 7 mg/dL (7-20); CALCIUM 9.6 mg/dL (8.4-10.2); CARBON DIOXIDE 22 mmol/L (22-30); CHLORIDE 111 mmol/L (98-107); CREATININE RESULT 0.73 mg/dL (0.52-1.25); GLUCOSE 105 mg/dL (75-110); POTASSIUM 3.9 mmol/L (3.6-5.0); SODIUM 142.7 mmol/L (137-145)
[2017-03-05] MEDS ORDERED: LORAZEPAM INJ 2 MG/1 ML VIAL IV PRN (11:23)
[2017-03-05] MEDS: ENOXAPARIN SODIUM INJ 40 MG/0.4 ML DISP.SYRIN SUBCUT SCH (11:52)
[2017-03-05] MEDS: LEVOFLOXACIN 750 MG TABLET PO SCH (11:53)
[2017-03-05] MEDS: FAMOTIDINE 20 MG TABLET PO SCH ×2 (11:53→22:52)
[2017-03-05] MEDS ORDERED: LEVETIRACETAM 500 MG TABLET PO ONE (12:00)
--- NOTE | 2017-03-05 12:41 | PDOC PROGRESS REPORT ---
Subjective Progress Note for:: 03/05/17 Subjective:: Patient denies any complaints. Patient was going to be discharged home however had a seizure. This is his first seizure in the year. Physical Exam Vital Signs: Temp Pulse Resp BP Pulse Ox 97.3 F 138 H 17 132/105 H 98 03/05/17 11:32 03/05/17 11:32 03/05/17 11:32 03/05/17 11:32 03/05/17 11:32 Intake & Output 03/04/17 03/05/17 03/06/17 06:59 06:59 06:59 Intake Total 2535 3208 Output Total 3650 4400 Balance -1115 -1192 Weight 97 kg 88.4 kg General appearance: PRESENT: no acute distress Eye exam: PRESENT: conjunctiva pink. ABSENT: scleral icterus Mouth exam: PRESENT: moist, tongue midline Neck exam: ABSENT: JVD Respiratory exam: PRESENT: clear to auscultation tessie. ABSENT: rales, rhonchi, wheezes Cardiovascular exam: PRESENT: RRR. ABSENT: diastolic murmur, rubs, systolic murmur GI/Abdominal exam: PRESENT: normal bowel sounds, soft. ABSENT: distended, guarding, mass, organolmegaly, rebound, tenderness Extremities exam: ABSENT: calf tenderness, clubbing, pedal edema Neurological exam: PRESENT: alert, awake, oriented to person, oriented to place , oriented to time, oriented to situation, CN II-XII grossly intact, motor sensory deficit - Right-sided hemiparesis. Psychiatric exam: PRESENT: appropriate affect Skin exam: PRESENT: dry, intact, warm. ABSENT: cyanosis, rash Results Laboratory Results: 03/05/17 04:30 03/05/17 04:30 03/05/17 03/05/17 04:30 04:30 WBC 5.5 RBC 4.51 Hgb 14.1 Hct 39.3 MCV 87 MCH 31.2 MCHC 35.9 RDW 14.4 H Plt Count 180 Seg Neutrophils % 59.7 Lymphocytes % 26.4 Monocytes % 8.3 Eosinophils % 4.8 Basophils % 0.8 Absolute Neutrophils 3.3 Absolute Lymphocytes 1.4 Absolute Monocytes 0.5 Absolute Eosinophils 0.3 Absolute Basophils 0.0 Sodium 142.7 Potassium 3.9 Chloride 111 H Carbon Dioxide 22 Anion Gap 10 BUN 7 Creatinine 0.73 Est GFR ( Amer) > 60 Est GFR (Non-Af Amer) > 60 Glucose 105 Calcium 9.6 03/02/17 20:30 Nasophary (Mrs[facility] Only) MRSA Surveillance Culture - Final NO MRSA RECOVERED Impressions: Chest X-Ray 03/02/17 11:44 IMPRESSION: NO ACUTE RADIOGRAPHIC FINDING IN THE CHEST. 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 No acute changes. EVIDENCE OF ACUTE STROKE: NO. Assessment & Plan - Diagnosis (1) Altered mental status Qualifiers: Altered mental status type: unspecified Qualified Code(s): R41.82 - Altered mental status, unspecified Is this a current diagnosis for this admission?: Yes Plan: Patient had encephalopathy from a urinary tract infection. Resolved (2) UTI (urinary tract infection) due to urinary indwelling Mcguire catheter Qualifiers: Is this a current diagnosis for this admission?: Yes Plan: Cultures are growing out Pseudomonas. 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 Continue p.o. Levaquin. (3) History of Coumadin therapy Is this a current diagnosis for this admission?: Yes Plan: We will continue with his current home dose. He is still somewhat subtherapeutic on his Coumadin level at this time. We will monitor with daily PT/INRs. (4) History of spinal cord injury Is this a current diagnosis for this admission?: Yes (5) Seizure disorder Is this a current diagnosis for this admission?: Yes Plan: patient had a seizure today. He has started on Keppra. His last seizure prior to today was 1 year ago. Because of the seizure will wait till tomorrow discharged home. - Time Time Spent with patient: 25-34 minutes - Inpatient Certification Medical Necessity: Need Close Monitoring Due to Risk of Patient Decompensation
[2017-03-05] MEDS: WARFARIN SODIUM 1 MG TABLET PO SCH (22:52)
[2017-03-05] MEDS: LEVETIRACETAM 500 MG TABLET PO SCH (22:52)
[2017-03-05] MEDS: MIRTAZAPINE 15 MG TABLET PO SCH (22:52)
[2017-03-05] MEDS: ACETAMINOPHEN 325 MG TABLET PO PRN (22:52)
[2017-03-05] MEDS: AMITRIPTYLINE HCL 25 MG TABLET PO SCH (22:52)
[2017-03-06 07:53] LABS: PROTHROMBIN TIME 15.6 SEC (11.4-15.4)
[2017-03-06] MEDS: ENOXAPARIN SODIUM INJ 40 MG/0.4 ML DISP.SYRIN SUBCUT SCH (10:36)
[2017-03-06] MEDS: FAMOTIDINE 20 MG TABLET PO SCH (10:36)
[2017-03-06] MEDS: LEVOFLOXACIN 750 MG TABLET PO SCH (10:36)
[2017-03-06] MEDS: LEVETIRACETAM 500 MG TABLET PO SCH (10:36)
[2017-03-06 10:38] VITALS: BP 125/83
--- NOTE | 2017-03-06 12:50 | PDOC DISCHARGE SUMMARY ---
General - Admit/Disc Date/PCP Admission Date/Primary Care Provider: 03/02/17 14:24 Discharge Date: 03/06/17 - Discharge Diagnosis (1) Altered mental status Is this a current diagnosis for this admission?: Yes Summary: Secondary to urinary tract infection. This has resolved. (2) UTI (urinary tract infection) due to urinary indwelling Mcguire catheter Is this a current diagnosis for this admission?: Yes Summary: Growing out Pseudomonas and enterococcus. The Pseudomonas is sensitive to Levaquin. Enterococcus most likely is a colonization. Clinically he has improved. (3) History of Coumadin therapy Is this a current diagnosis for this admission?: Yes Summary: He currently is subtherapeutic. Given that he is on antibiotics will not make any changes in his dose at this time. (4) History of spinal cord injury Is this a current diagnosis for this admission?: Yes (5) Seizure disorder Is this a current diagnosis for this admission?: Yes Summary: Patient had a seizure while hospitalized. Keppra was started. - Additional Information Resuscitation Status: Full Code Discharge Diet: Regular Discharge Activity: Activity As Tolerated Home Medications: Amitriptyline HCl [Elavil 25 mg Tablet] 25 mg PO QHS 03/02/17 Atorvastatin Calcium [Lipitor 20 mg Tablet] 20 mg PO QHS 03/02/17 Baclofen [Baclofen 20 mg Tablet] 20 mg PO Q8 03/02/17 Escitalopram Oxalate [Lexapro] 20 mg PO DAILY 03/02/17 Gabapentin [Neurontin 100 mg Capsule] 100 mg PO TID 03/02/17 Levetiracetam [Keppra Xr 500 mg Tab.sr] 500 mg PO Q12 03/02/17 Linaclotide [Linzess] 145 mcg PO DAILY 03/02/17 Midodrine HCl 2.5 mg PO DAILY 03/02/17 Mirtazapine [Remeron] 30 mg PO QHS 03/02/17 Mupirocin 22 gm TP BID 03/02/17 Nystatin 1 applic TP BID 03/02/17 Warfarin Sodium 1.5 mg PO SUTUTHSA@1000 03/02/17 Warfarin Sodium [Coumadin 3 mg Tablet] 3 mg PO MOWEFR@1000 03/02/17 Flu Vacc [id number] Up/Pf [Fluzone Adlt Quad [id number] Vac 0.5 ml Syr] 0.5 ml IM .DISCHARGE PRN disp.syrin 03/05/17 Ipratropium/Albuterol Sulfate [Duoneb 3 ml Ampul] 3 ml NEB [id number] PRN vial.neb 03/05/17 Levetiracetam [Keppra 500 mg Tablet] 500 mg PO Q12 #60 tablet 03/05/17 Levofloxacin [Levaquin 750 mg Tablet] 750 mg PO DAILY #10 tablet 03/05/17 History of Present Illness History of Present Illness: HUMBERTO GARCIA is a 62 year old male with a history of spinal cord injury 1982 and a history of CVA 2015 who has chronic suprapubic catheter who presents with altered mental status. Patient was brought in by his . She was not available at the time of my interview and this is obtained from the patient and from the emergency room physician. Reported that the patient is more confused than he usually is. This been going on for just 1 day. There has not been any fevers or chills. He has had previous urinary tract infections. Last time he had when he grew out MRSA from his urine. The patient denies any symptoms to me. Hospital Course Hospital Course: 62-year-old gentleman has a chronic suprapubic Mcguire catheter who presented with altered mental status. The patient was found to have a urinary tract infection. The patient grew out both Pseudomonas and enterococcus. Patient was started on broad-spectrum antibiotics but when the Pseudomonas grew he was switched to Levaquin. He clinically continued to improve and I suspect that the enterococcus is actually colonization. Patient will continue with the Levaquin for total of 10 days of antibiotics. Patient while hospitalized did have a seizure. He has a history of seizure with the last seizure being about a year ago. He was started on Keppra has had no further seizure activity. His other medical problems are stable. Physical Exam Vital Signs: Temp Pulse Resp BP Pulse Ox 98.5 F 87 12 125/83 98 03/06/17 10:52 03/06/17 10:52 03/06/17 10:52 03/06/17 10:52 03/06/17 10:52 Intake & Output 03/05/17 03/06/17 03/07/17 06:59 06:59 06:59 Intake Total 3208 1713 Output Total 4400 2500 Balance -1192 -787 Weight 88.4 kg 92.3 kg General appearance: PRESENT: no acute distress Eye exam: PRESENT: conjunctiva pink. ABSENT: scleral icterus Mouth exam: PRESENT: moist, tongue midline Neck exam: ABSENT: JVD Respiratory exam: PRESENT: clear to auscultation tessie. ABSENT: rales, rhonchi, wheezes Cardiovascular exam: PRESENT: RRR. ABSENT: diastolic murmur, rubs, systolic murmur GI/Abdominal exam: PRESENT: normal bowel sounds, soft. ABSENT: distended, guarding, mass, organolmegaly, rebound, tenderness Extremities exam: ABSENT: calf tenderness, clubbing, pedal edema Neurological exam: PRESENT: alert, awake, oriented to person, oriented to place , oriented to time, oriented to situation, CN II-XII grossly intact, motor sensory deficit - Right-sided weakness. Psychiatric exam: PRESENT: appropriate affect Skin exam: PRESENT: dry, intact, warm. ABSENT: cyanosis, rash Results Laboratory Results: 03/05/17 04:30 03/05/17 04:30 Impressions: Chest X-Ray 03/02/17 11:44 IMPRESSION: NO ACUTE RADIOGRAPHIC FINDING IN THE CHEST. 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 No acute changes. EVIDENCE OF ACUTE STROKE: NO. Qualifiers PATEINT BEING DISCHARGED WITH ANY OF THE FOLLOWING DIAGNOSIS?: No Plan Discharge Plan: Patient is discharged home. Will follow up with home health for physical therapy as well as PT/INR. Patient will need a PT/INR INR drawn in 1 week. Follow with primary care in 1-2 weeks. Time Spent: Greater than 30 Minutes
== END 2017-03-06 12:20 | disposition home health service (06) | DRG 699 ==
LOC: ER 10:39 → UNDOADMIN 13:29 → EH 13:29 → 4S 15:16 → EH 15:16
PROVIDERS: ADMIT Internal Medicine; ATTEND Internal Medicine
PROC: 3E0F73Z Introduction of Anti-inflammatory into Respiratory Tract, Via Natural or Artificial Opening (ICD-10-PCS; principal; 2017-03-02)
PROC: 3E0234Z Introduction of Serum, Toxoid and Vaccine into Muscle, Percutaneous Approach (ICD-10-PCS; 2017-03-05)
DX: T83.511A Infection and inflammatory reaction due to indwelling urethral catheter, initial encounter (principal); I69.951 Hemiplegia and hemiparesis following unspecified cerebrovascular disease affecting right dominant side; N39.0 Urinary tract infection, site not specified; B96.5 Pseudomonas (aeruginosa) (mallei) (pseudomallei) as the cause of diseases classified elsewhere; B95.2 Enterococcus as the cause of diseases classified elsewhere; G40.909 Epilepsy, unspecified, not intractable, without status epilepticus; F32.9 Major depressive disorder, single episode, unspecified; R41.82 Altered mental status, unspecified; Z23 Encounter for immunization; I69.920 Aphasia following unspecified cerebrovascular disease; Z79.01 Long term (current) use of anticoagulants; Z79.899 Other long term (current) drug therapy; Z86.14 Personal history of Methicillin resistant Staphylococcus aureus infection; Z87.828 Personal history of other (healed) physical injury and trauma; Z87.891 Personal history of nicotine dependence; Z82.49 Family history of ischemic heart disease and other diseases of the circulatory system
CPT/HCPCS: 36415; 70450; 71010; 80048; 80053; 80202; 81001; 82550; 82553; 82803; 82962; 83605; 84484; 85025; 85610; 85730; 87040; 87086; 87088; 87186; 90686; 93005; 93010; 99285; J0696; J1650; J2060; J3370; J3490; J7030; J7060

== ENCOUNTER 2017-05-12 12:14 | Emergency (ER) | payer OTHER ==
[2017-05-12] MEDS ORDERED: NORMAL SALINE 500 ML IV ONE (13:02)
[2017-05-12 13:55] LABS: ABSOLUTE BASOPHILS # (AUTO) 0.1 10^3/uL (0.0-0.2); ABSOLUTE EOSINOPHILS # (AUTO) 0.6 10^3/uL (0.0-0.6); ABSOLUTE LYMPHOCYTES (AUTO) 2.7 10^3/uL (0.5-4.7); ABSOLUTE MONOCYTES (AUTO) 0.9 10^3/uL (0.1-1.4); ABSOLUTE NEUT (AUTO) 4.2 10^3/uL (1.7-8.2); BASOPHILS % (AUTO) 0.9 % (0-2); EOSINOPHILS % (AUTO) 7.3 % (0-6); HEMATOCRIT 46.1 % (37.9-51.0); HEMOGLOBIN 16.1 g/dL (13.5-17.0); HGB HCT DIFFERENCE 2.2; LYMPHOCYTES % (AUTO) 31.8 % (13-45); MEAN CORPUSCULAR HEMOGLOBIN 31.5 pg (27.0-33.4); MEAN CORPUSCULAR VOLUME 90 fl (80-97); MONOCYTES % (AUTO) 10.3 % (3-13); RED BLOOD COUNT 5.13 10^6/uL (4.35-5.55); RED CELL DISTRIBUTION WIDTH 16.2 % (11.5-14.0); SEGMENTED NEUTROPHILS % (AUTO) 49.7 % (42-78); WHITE BLOOD COUNT 8.4 10^3/uL (4.0-10.5)
[2017-05-12 13:59] LABS: APPEARANCE,URINE TURBID; BILIRUBIN,URINE NEGATIVE (NEGATIVE); GLUCOSE, URINE NEGATIVE (NEGATIVE); KETONES,URINE NEGATIVE (NEGATIVE); LEUKOCYTE ESTERASE,URINE LARGE (NEGATIVE); NITRITE,URINE POSITIVE (NEGATIVE); PROTEIN,URINE 100 mg/dL (NEGATIVE); URINE SPECIFIC GRAVITY 1.011; UROBILINOGEN,URINE NEGATIVE mg/dL (<2.0)
[2017-05-12 14:08] LABS: ANION GAP 9 (5-19); BLOOD UREA NITROGEN 14 mg/dL (7-20); CALCIUM 10.1 mg/dL (8.4-10.2); CARBON DIOXIDE 28 mmol/L (22-30); CHLORIDE 104 mmol/L (98-107); CREATININE RESULT 0.86 mg/dL (0.52-1.25); GLUCOSE 109 mg/dL (75-110); POTASSIUM 3.8 mmol/L (3.6-5.0); SODIUM 141.3 mmol/L (137-145)
--- NOTE | 2017-05-12 15:02 | RADIOLOGY REPORT (SQ) ---
EXAM DESCRIPTION: KUB/ABDOMEN (SINGLE VIEW) COMPLETED DATE/TIME: 05/12/2017 2:38 pm REASON FOR STUDY: constipation COMPARISON: None. NUMBER OF VIEWS: One view. TECHNIQUE: Supine radiographic image of the abdomen acquired. LIMITATIONS: None. FINDINGS: BOWEL GAS PATTERN: Normal bowel gas pattern. No dilated loops. CALCIFICATIONS: No suspicious calcifications. SOFT TISSUES: No gross mass or suggestion of organomegaly. HARDWARE: None in the abdomen. BONES: No acute fracture. Chronic deformity of the left iliac crest. No worrisome bone lesions. OTHER: No other significant finding. IMPRESSION: NO RADIOGRAPHIC EVIDENCE FOR ACUTE ABDOMINAL DISEASE. TECHNICAL DOCUMENTATION: JOB ID: [id number] [employer]- All Rights Reserved
--- NOTE | 2017-05-12 15:23 | ER Document Report ---
ED General - General Chief Complaint: Problem with Urinary Catheter Stated Complaint: URINARY ISSUES Time Seen by Provider: 05/12/17 12:20 TRAVEL OUTSIDE OF THE [place] IN LAST 30 DAYS: No - HPI Patient complains to provider of: Urinary retention Notes: Patient coming in for evaluation of urinary retention. Patient has a history of an indwelling suprapubic Mcguire catheter. Patient states that he was recently started on antibiotics for urinary tract infection Macrobid for this urinary tract infection. at bedside states that decreased urine flow denies any fevers chills states also had a hard bowel movement today after an enema. Patient complained of suprapubic lower abdominal pain therefore was brought to the ER. Otherwise states multiply disabled due to a stroke compliant with medications. Patient upon my evaluation is resting comfortably no signs of any obvious distress. - Related Data Allergies/Adverse Reactions: No Known Allergies Allergy (Verified 03/02/17 16:59) Past Medical History - Social History Smoking Status: Unknown if Ever Smoked Family History: Hypertension Patient has suicidal ideation: No Patient has homicidal ideation: No Neurological Medical History: Reports: Hx Seizures Renal/ Medical History: Denies: Hx Peritoneal Dialysis Psychiatric Medical History: Reports: Hx Depression Infectious Medical History: Reports: Hx MRSA Past Surgical History: Reports: Hx Orthopedic Surgery - spinal fusion - Immunizations Hx Diphtheria, Pertussis, Tetanus Vaccination: Yes Review of Systems - Review of Systems Constitutional: No symptoms reported EENT: No symptoms reported Cardiovascular: No symptoms reported Respiratory: No symptoms reported Gastrointestinal: Abdominal pain Genitourinary: Retention Male Genitourinary: No symptoms reported Musculoskeletal: No symptoms reported Skin: No symptoms reported Hematologic/Lymphatic: No symptoms reported Neurological/Psychological: No symptoms reported -: Yes All other systems reviewed and negative Physical Exam - Vital signs Vitals: Temp Pulse Resp BP Pulse Ox 97.4 F 84 16 123/90 H 98 05/12/17 12:24 05/12/17 12:24 05/12/17 12:24 05/12/17 12:24 05/12/17 12:24 Interpretation: Normal - General General appearance: Appears well, Alert - HEENT Head: Normocephalic, Atraumatic Eyes: Normal Pupils: PERRL - Respiratory Respiratory status: No respiratory distress Chest status: Nontender Breath sounds: Normal Chest palpation: Normal - Cardiovascular Rhythm: Regular Heart sounds: Normal auscultation Murmur: No - Abdominal Inspection: Normal Distension: No distension Bowel sounds: Normal Tenderness: Nontender Organomegaly: No organomegaly - Genitourinary Notes: Patient has a palpable bladder. Evaluation suprapubic catheter does not reveal any signs of infection. The urine bag does have yellow urine with a copious amount sedimentation within the bag. - Back Back: Normal, Nontender - Extremities General upper extremity: Normal inspection, Nontender, Normal color, Normal ROM , Normal temperature General lower extremity: Normal inspection, Nontender, Normal color, Normal ROM , Normal temperature, Normal weight bearing. No: Chuy's sign - Neurological Neuro grossly intact: Yes Cognition: Normal Orientation: AAOx4 [place] Coma Scale Eye Opening: Spontaneous [place]anes[place] Coma Scale Verbal: Oriented [place] Coma Scale Motor: Obeys Commands Vanesa Coma Scale Total: 15 Speech: Normal Motor strength normal: LUE, RUE, LLE, RLE Sensory: Normal - Psychological Associated symptoms: Normal affect, Normal mood - Skin Skin Temperature: Warm Skin Moisture: Dry Skin Color: Normal Course - Re-evaluation Re-evalutation: 05/12/17 17:47 Suprapubic catheter was exchanged for a Mcguire catheter same size 18 Indian. We did blood balloon with approximately 15 cc of sterile saline. Patient tolerated procedure well. Patient did have copious amounts of urine come out of the suprapubic catheter afterwards with a lower sedimentation. Urinalysis was sent which does show signs of infection however think this is more or less contamination as the patient does have indwelling Mcguire catheter does not have a fever otherwise blood pressures been stable no tachycardia and there is no leukocytosis or bandemia. Explained to the family members to continue on with her Macrobid we will send another culture although I feel that this is probably will be more likely contamination. If the culture comes back shows no sensitivity to Macrobid I would recommend evaluating patient again as far as any other fevers or chills. If no fevers or chills I do not think there is any need for changing the antibiotics. - Vital Signs Vital signs: Temp Pulse Resp BP Pulse Ox 97.4 F 84 16 123/90 H 98 05/12/17 12:24 05/12/17 12:24 05/12/17 12:24 05/12/17 12:24 05/12/17 12:24 - Laboratory Result Diagrams: 05/12/17 13:39 12/22/17 13:39 Laboratory results interpreted by me: 05/12/17 05/12/17 13:39 13:39 RDW 16.2 H Eosinophils % 7.3 H Urine Protein 100 H Urine Blood SMALL H Urine Nitrite POSITIVE H Ur Leukocyte Esterase LARGE H Procedures - Additional Procedures Suprapubic catheter Notes: 05/12/17 17:48 Patient underwent exchange of suprapubic catheter. The balloon to the suprapubic catheter was deflated and removed. Cleansed the area prior to doing this with ChloraPrep. Using sterile gloves did reinsert a new 18 Indian Mcguire catheter into the suprapubic site this procedure underwent without complication. Discharge - Discharge Clinical Impression: Suprapubic urinary catheter malfunction Condition: Good Disposition: HOME, SELF-CARE Additional Instructions: The suprapubic urinary catheter was exchanged with the same size catheter. This was successful there is draining of the bladder. X-ray does not show any signs of constipation. Laboratory studies also does not show any signs of acute infection at this time. The urinalysis does show bacteria however with the patient having no fever no white count I will continue on the Macrobid at this time. We will send urine for culture however more likely I think this is contamination from chronic indwelling Mcguire catheter. I recommend she follow- up with your primary care physician in approximately 1 to weeks. Return to the ER for any concerns. Referrals: OJ RAGLAND MD [Primary Care Provider] - Follow up in 1 week
[2017-05-12 19:02] VITALS: BP 131/83
== END 2017-05-12 15:31 | disposition home or self-care (01) ==
LOC: ER 12:14
DX: T83.091A Other mechanical complication of indwelling urethral catheter, initial encounter (principal); Y84.6 Urinary catheterization as the cause of abnormal reaction of the patient, or of later complication, without mention of misadventure at the time of the procedure; N39.0 Urinary tract infection, site not specified; R10.30 Lower abdominal pain, unspecified; R33.9 Retention of urine, unspecified; Z86.14 Personal history of Methicillin resistant Staphylococcus aureus infection
CPT/HCPCS: 36415; 74000; 80048; 81001; 85025; 87086; 87088; 87186; 99284

== ENCOUNTER 2017-10-10 12:09 | Emergency (ER) | payer OTHER ==
--- NOTE | 2017-10-10 13:04 | ER Document Report ---
ED General - General Chief Complaint: Needs Urinary Cath Replaced Stated Complaint: CATHETER ISSUES Time Seen by Provider: 10/10/17 12:17 Mode of Arrival: Ambulatory Information source: Patient, Relative - TRAVEL OUTSIDE OF THE [place] IN LAST 30 DAYS: No - HPI Notes: 62-year-old male with past medical history of having a spinal cord injury in 1982, with a history of MRSA,UTIs presents today for complaints of his suprapubic catheter being dislodged this morning. Catheter has been out since then. Nurse was unable to get pubic catheter placed, this is why patient family came to the ER today. Reports history of chronic UTIs. Denies fevers, chills, chest pain,palpitations, shortness of breath, dyspnea, nausea, vomiting, diarrhea, abdominal pain, hematuria,blurred vision, double vision, loss of vision, speech changes, LH, dizziness, syncope, headaches, wheezing, ST , URI, neck pain, weakness, bowel dysfunction, saddle anesthesia, numbness or tingling in bilateral upper or lower extremities equally, muscle paralysis, weakness in bilateral upper or lower extremities equally or rash. Denies IV drug use. - Related Data Allergies/Adverse Reactions: No Known Allergies Allergy (Verified 03/02/17 16:59) Past Medical History - General Information source: Patient, Relative - Social History Smoking Status: Former Smoker Family History: Reviewed & Not Pertinent, Hypertension Patient has suicidal ideation: No Patient has homicidal ideation: No Neurological Medical History: Reports: Hx Seizures Renal/ Medical History: Denies: Hx Peritoneal Dialysis Psychiatric Medical History: Reports: Hx Depression Infectious Medical History: Reports: Hx MRSA Past Surgical History: Reports: Hx Orthopedic Surgery - spinal fusion - Immunizations Hx Diphtheria, Pertussis, Tetanus Vaccination: Yes Review of Systems - Review of Systems Constitutional: No symptoms reported EENT: No symptoms reported Cardiovascular: No symptoms reported Respiratory: No symptoms reported Gastrointestinal: No symptoms reported Genitourinary: See HPI Male Genitourinary: No symptoms reported Musculoskeletal: No symptoms reported Skin: No symptoms reported Hematologic/Lymphatic: No symptoms reported Neurological/Psychological: No symptoms reported Physical Exam - Vital signs Vitals: Temp Pulse Resp BP Pulse Ox 97.6 F 80 16 108/72 96 10/10/17 12:25 10/10/17 12:25 10/10/17 12:25 10/10/17 12:25 10/10/17 12:25 - Notes Notes: PHYSICAL EXAMINATION: GENERAL: Chronically ill-appearing well-nourished and in no acute distress. HEAD: Atraumatic, normocephalic. EYES: Pupils equal round and reactive to light, extraocular movements intact, sclera anicteric, conjunctiva are normal. ENT: Nares patent, oropharynx clear without exudates. Moist mucous membranes. NECK: Normal range of motion, supple without lymphadenopathy LUNGS: Breath sounds clear to auscultation bilaterally and equal. No wheezes rales or rhonchi. HEART: Regular rate and rhythm without murmurs ABDOMEN: Soft, nontender, nondistended abdomen. No guarding, no rebound. No masses appreciated. The pubic stoma pink and moist. No drainage. No surrounding erythema, induration. no fluctuance noted. Musculoskeletal: Normal range of motion, no pitting or edema. No cyanosis. NEUROLOGICAL: Cranial nerves grossly intact. Normal speech, normal gait. Normal sensory, motor exams PSYCH: Normal mood, normal affect. SKIN: Warm, Dry, normal turgor, no rashes or lesions noted. Course - Re-evaluation Re-evalutation: 10/10/17 15:37 62-year-old male resents for reinsertion of his suprapubic catheter that felt this morning. Patient has 97 mL's of urine retained bladder scan. Dr. Popeye Kimble, ER 30 suprapubic catheter [address] Kimble's procedure note for further details. Patient tolerated reinsertion irrigation of catheter until clear. Start patient on oral Macrobid for UTI will send urine for culture. Hematuria noted and urinalysis however this partially may be due to recent insertion of suprapubic catheter. I have reevaluated this patient multiple times and no significant life threatening changes, no signs of toxicity , sepsis or peritonitis are noted. The patient and I have discussed the diagnosis and risks, and we agree with discharging home and close follow-up. We also discussed returning to the Emergency Department immediately if new or worsening symptoms occur with the understanding that symptoms and presentations can change. At this time will discharge with return precautions and follow-up recommendations. Verbal discharge instructions given a the bedside and opportunity for questions given. We have discussed the symptoms which are most concerning (e.g., saddle anesthesia, urinary or bowel incontinence or retention , changing or worsening pain) that necessitate immediate return. Medication warnings reviewed. Patient is in agreement with this plan and has verbalized understanding of return precautions and the need for primary care follow-up in the next 24-72 hours. Patient to follow-up with urologist and primary care provider. patient verbalized understanding of plan of care and agree with plan of care. - Vital Signs Vital signs: Temp Pulse Resp BP Pulse Ox 97.5 F 57 L 16 148/96 H 93 10/10/17 17:03 10/10/17 17:03 10/10/17 17:03 10/10/17 17:03 10/10/17 17:03 - Laboratory Laboratory results interpreted by me: 10/10/17 16:15 Urine Protein 30 H Urine Blood LARGE H Urine Urobilinogen 2.0 H Ur Leukocyte Esterase LARGE H Discharge - Discharge Clinical Impression: Suprapubic catheter UTI (urinary tract infection) Qualifiers: Urinary tract infection type: catheter-associated UTI Indwelling urinary catheter type: unspecified Encounter type: initial encounter Qualified Code(s): T83.511A - Infection and inflammatory reaction due to indwelling urethral catheter, initial encounter Condition: Good Disposition: HOME, SELF-CARE Instructions: Mcguire Catheter Care ([facility]), Nitrofurantoin ([facility]), Urinary Tract Infection ([facility]) Prescriptions: Nitrofurantoin Macrocrystal [Macrodantin] 100 mg PO BID #14 capsule Referrals: VALERIANO LEON MD [ACTIVE STAFF] - Follow up in 3-5 days SUSANNE JACOBSON MD [ACTIVE STAFF] - Follow up in 3-5 days
--- NOTE | 2017-10-10 15:21 | ER Document Report ---
Doctor's Note Notes: 10/10/17 15:19 After consent was obtained the suprapubic area was prepped with Betadine. Ultrasound was used to locate the bladder. There is a previous suprapubic catheter insertion area. The suprapubic catheter dilator was introduced. Unable to penetrate into the bladder. A sterile Q-tip was used to bluntly dissect down through the suprapubic area. The Q-tip was entered into the bladder. Q-tip was removed. Large blood clot removed. Second Q-tip was used to bluntly dissect down through the tissue. That was removed. A sterile 18- gauge Mcguire catheter was then able to be advanced. Urine was obtained. No complications. The bladder was irrigated to remove any blood clots. Patient tolerated procedure well. No complications.
[2017-10-10] MEDS ORDERED: NITROFURANTOIN MONOHYD/M-CRYST 100 MG CAPSULE PO ONE (16:15)
[2017-10-10 16:36] LABS: APPEARANCE,URINE CLOUDY; BILIRUBIN,URINE NEGATIVE (NEGATIVE); COLOR,URINE YELLOW; GLUCOSE, URINE NEGATIVE (NEGATIVE); KETONES,URINE NEGATIVE (NEGATIVE); LEUKOCYTE ESTERASE,URINE LARGE (NEGATIVE); NITRITE,URINE NEGATIVE (NEGATIVE); PROTEIN,URINE 30 mg/dL (NEGATIVE); URINE SPECIFIC GRAVITY 1.012
[2017-10-10 17:17] VITALS: BP 148/96
== END 2017-10-10 17:17 | disposition home or self-care (01) ==
LOC: ER 12:09
DX: T83.511A Infection and inflammatory reaction due to indwelling urethral catheter, initial encounter (principal); Z86.14 Personal history of Methicillin resistant Staphylococcus aureus infection; Z87.440 Personal history of urinary (tract) infections; Z98.1 Arthrodesis status
CPT/HCPCS: 51702; 81001; 87086; 87088; 87186; 99284

== ENCOUNTER 2019-06-21 16:29 | Inpatient (IN) | payer MEDICARE ==
[2019-06-21] MEDS ORDERED: NORMAL SALINE 1000 ML 1,000 ML IV ONE ×2 (17:35→20:25)
[2019-06-21 17:49] LABS: ABSOLUTE BASOPHILS # (AUTO) 0.1 10^3/uL (0.0-0.2); ABSOLUTE EOSINOPHILS # (AUTO) 0.2 10^3/uL (0.0-0.6); ABSOLUTE LYMPHOCYTES (AUTO) 1.6 10^3/uL (0.5-4.7); ABSOLUTE MONOCYTES (AUTO) 0.7 10^3/uL (0.1-1.4); ABSOLUTE NEUT (AUTO) 13.1 10^3/uL (1.7-8.2); BASOPHILS % (AUTO) 0.4 % (0-2); EOSINOPHILS % (AUTO) 1.2 % (0-6); HEMATOCRIT 52.5 % (37.9-51.0); HEMOGLOBIN 18.1 g/dL (13.5-17.0); MEAN CORPUSCULAR HGB CONC 34.4 g/dL (32.0-36.0); MEAN CORPUSCULAR VOLUME 87 fl (80-97); MONOCYTES % (AUTO) 4.2 % (3-13); PLATELET COUNT 271 10^3/uL (150-450); RED BLOOD COUNT 6.03 10^6/uL (4.35-5.55); RED CELL DISTRIBUTION WIDTH 13.2 % (11.5-14.0); SEGMENTED NEUTROPHILS % (AUTO) 84.2 % (42-78); TOTAL CELLS COUNTED % (AUTO) 100 %; WHITE BLOOD COUNT 15.6 10^3/uL (4.0-10.5)
[2019-06-21 18:06] LABS: ALBUMIN 4.2 g/dL (3.5-5.0); ALKALINE PHOSPHATASE 141 U/L (38-126); ANION GAP 13 (5-19); ASPARTATE AMINO TRANSFERASE 24 U/L (17-59); BILIRUBIN,DIRECT 0.3 mg/dL (0.0-0.4); BILIRUBIN,TOTAL 0.5 mg/dL (0.2-1.3); BLOOD UREA NITROGEN 15 mg/dL (7-20); CARBON DIOXIDE 27 mmol/L (22-30); CHLORIDE 97 mmol/L (98-107); GLUCOSE 371 mg/dL (75-110); POTASSIUM 5.2 mmol/L (3.6-5.0); TOTAL PROTEIN 8.2 g/dL (6.3-8.2)
[2019-06-21 18:14] LABS: CREATINE KINASE MB 0.54 ng/mL (<4.55)
[2019-06-21 18:27] LABS: TROPONIN I < 0.012 ng/mL
[2019-06-21 18:32] LABS: APPEARANCE,URINE TURBID; BILIRUBIN,URINE NEGATIVE (NEGATIVE); COLOR,URINE YELLOW; GLUCOSE, URINE >=500 mg/dL (NEGATIVE); KETONES,URINE NEGATIVE (NEGATIVE); LEUKOCYTE ESTERASE,URINE LARGE (NEGATIVE); NITRITE,URINE NEGATIVE (NEGATIVE); PROTEIN,URINE 30 mg/dL (NEGATIVE); URINE SPECIFIC GRAVITY 1.008; UROBILINOGEN,URINE NEGATIVE mg/dL (<2.0)
--- NOTE | 2019-06-21 18:45 | RADIOLOGY REPORT (SQ) ---
EXAM DESCRIPTION: CHEST SINGLE VIEW COMPLETED DATE/TIME: 06/21/2019 6:26 pm REASON FOR STUDY: CP COMPARISON: 03/02/2017 EXAM PARAMETERS: NUMBER OF VIEWS: 1 TECHNIQUE: Single frontal radiographic view of the chest acquired. RADIATION DOSE: NA LIMITATIONS: None. FINDINGS: LUNGS AND PLEURA: Minimal parenchymal opacity at the left base. Right lung is clear. MEDIASTINUM AND HILAR STRUCTURES: No masses. Contour normal. HEART AND VASCULAR STRUCTURES: Heart normal in size. Normal vasculature. BONES: No acute findings. HARDWARE: None in the chest. OTHER: No other significant finding. IMPRESSION: Left basilar pneumonitis. TECHNICAL DOCUMENTATION: JOB ID: [id number] [employer]- All Rights Reserved Reading location - IP/workstation name: [email or web address]
--- NOTE | 2019-06-21 19:14 | ER Document Report ---
ED General - General Chief Complaint: Abdominal Pain Stated Complaint: ABDOMINAL PAIN Mode of Arrival: Medic Information source: Patient, Relative, Friend Cannot obtain history due to: Altered mental status Notes: Patient has also suffered from a CVA affecting speech and left side movement cristhian or to this patient had suffered a cervical spine injury. Patient has a suprapubic catheter and today while the PCT/WATCH [employer]S GRINDER was cleaning the patient she noticed a baseball sized mass to the right lower quadrant. Patient appeared to be tender to palpation. She states this was found at about 1230 this afternoon. Also of note when speaking with the patient's he had 4 teeth extracted this past Monday but otherwise has been at baseline. There is no report of sick contacts. TRAVEL OUTSIDE OF THE [place] IN LAST 30 DAYS: No - HPI Patient complains to provider of: Abdominal Mass Onset: This morning Onset/Duration: Persistent Quality of pain: Fullness, Pressure Pain Level: 3 Associated symptoms: Slow to respond Exacerbated by: Movement Relieved by: Denies Similar symptoms previously: No - Related Data Allergies/Adverse Reactions: No Known Allergies Allergy (Verified 06/21/19 17:37) Past Medical History - General Information source: Relative, H Records Cannot obtain history due to: Altered mental status - Social History Smoking Status: Unknown if Ever Smoked Cigarette use (# per day): No Chew tobacco use (# tins/day): No Frequency of alcohol use: None Drug Abuse: None Lives with: Spouse/Significant other Family History: Reviewed & Not Pertinent, Hypertension Patient has suicidal ideation: No Patient has homicidal ideation: No Neurological Medical History: Reports: Hx Cerebrovascular Accident, Hx Seizures Renal/ Medical History: Denies: Hx Peritoneal Dialysis Psychiatric Medical History: Reports: Hx Depression Traumatic Medical History: Reports: Hx Spine Fracture Infectious Medical History: Reports: Hx MRSA Past Surgical History: Reports: Hx Orthopedic Surgery - spinal fusion - Immunizations Hx Diphtheria, Pertussis, Tetanus Vaccination: Yes Review of Systems - Review of Systems Constitutional: Malaise, Weakness EENT: No symptoms reported Cardiovascular: Palpitations Respiratory: Short of breath Gastrointestinal: See HPI Musculoskeletal: No symptoms reported Skin: No symptoms reported Hematologic/Lymphatic: No symptoms reported Neurological/Psychological: Depression -: Yes All other systems reviewed and negative Physical Exam - Vital signs Vitals: Temp Pulse Resp BP Pulse Ox 98.7 F 136 H 19 134/94 H 96 06/21/19 16:56 06/21/19 16:56 06/21/19 16:56 06/21/19 16:56 06/21/19 16:56 - General General appearance: Other - Poor, minimally responsive initially In distress: Moderate - HEENT Head: Normocephalic Eyes: Normal Conjunctiva: Injected Extraocular movements intact: Yes Pupils: PERRL External canal: Normal Nasal: Normal Mouth/Lips: Normal Mucous membranes: Dry Pharynx: Normal Neck: Normal - Respiratory Respiratory status: Tachypnea Chest status: Nontender Breath sounds: Normal Chest palpation: Normal - Cardiovascular Rhythm: Tachycardia Heart sounds: Normal auscultation Murmur: No Pulses: Normal: Radial Normal capillary refill: No Decreased capillary refill in seconds: 5 - Abdominal Inspection: Other - Suprapubic catheter in mid abdomen Distension: Distended Bowel sounds: Hypoactive Tenderness: Tender Organomegaly: No organomegaly - Patient has tenderness to the middle/right lower quadrant worse with palpation - Back Back: Normal - Extremities General upper extremity: Normal inspection, Nontender, Normal temperature General lower extremity: Normal inspection, Nontender, Normal temperature. No: Chuy's sign Notes: Patient has decreased range of motion bilaterally but left greater than right secondary to prior CVA. - Neurological Neuro grossly intact: No Cognition: Inattentive [place] Coma Scale Eye Opening: To Voice [place] Coma Scale Verbal: Oriented [place] Coma Scale Motor: Localizes to Pain [place] Coma Scale Total: 13 Speech: Dysarthria - Skin Skin Temperature: Warm Skin Moisture: Dry Skin Color: Ashen Skin Turgor: Tenting Location of irregularity: Generalized Course - Re-evaluation Re-evalutation: 06/21/19 20:34 Patient has been reevaluated several times while in the emergency department patient has gradually improved. I did discuss the laboratory and radiologic results with patient and family members. They are in agreement with admission for fluid rehydration and antibiotic coverage for UTI and leukocytosis. Patient will receive a second liter of IV normal saline bolus. Patient has received initial fluid bolus. Patient will receive a gram of Rocephin for antibiotic coverage. I did speak with the hospitalist who is agreeable with admission at this time. - Vital Signs Vital signs: Temp Pulse Resp BP Pulse Ox 98.7 F 136 H 19 134/94 H 96 06/21/19 16:56 06/21/19 16:56 06/21/19 16:56 06/21/19 16:56 06/21/19 17:06 - Laboratory Result Diagrams: 06/21/19 17:25 06/21/19 17:25 Laboratory results interpreted by me: 06/21/19 06/21/19 06/21/19 17:25 17:25 17:25 WBC 15.6 H RBC 6.03 H Hgb 18.1 H Hct 52.5 H Lymph % (Auto) 10.0 L Absolute Neuts (auto) 13.1 H Seg Neutrophils % 84.2 H Sodium 136.7 L Potassium 5.2 H Chloride 97 L Glucose 371 H Lactic Acid 2.8 H Calcium 11.0 H Alkaline Phosphatase 141 H Urine Protein Urine Glucose (UA) Urine Blood Ur Leukocyte Esterase 06/21/19 17:56 WBC RBC Hgb Hct Lymph % (Auto) Absolute Neuts (auto) Seg Neutrophils % Sodium Potassium Chloride Glucose Lactic Acid Calcium Alkaline Phosphatase Urine Protein 30 H Urine Glucose (UA) >=500 H Urine Blood SMALL H Ur Leukocyte Esterase LARGE H - Diagnostic Test Radiology reviewed: Reports reviewed - EKG Interpretation by Id EKG shows normal: Sinus rhythm Rate: Tachycardia Rhythm: NSR [place]/QRS: Right axis deviation When compared to previous EKG there are: Changes noted Additional EKG results interpreted by me: 06/21/19 20:36 Patient EKG is interpreted by mi shows sinus tachycardia rate of 138 bpm. Patient EKG does demonstrate J-point elevation in leads III and aVF. There is no significant lateral ST depressions. This is different compared to prior EKG of March 02 2017. Discharge - Discharge Clinical Impression: UTI (urinary tract infection) due to urinary indwelling Mcguire catheter Condition: Fair Disposition: ADMITTED INPATIENT Admitting Provider: Mark (Hospitalist) Unit Admitted: [facility]
--- NOTE | 2019-06-21 19:27 | RADIOLOGY REPORT (SQ) ---
EXAM DESCRIPTION: CT ABD/PELVIS WITH IV ONLY COMPLETED DATE/TIME: 06/21/2019 7:09 pm REASON FOR STUDY: ?? Mass RLQ COMPARISON: 10/29/2016 TECHNIQUE: CT scan of the abdomen and pelvis performed using helical scanning technique with dynamic intravenous contrast injection. No oral contrast. Images reviewed with lung, soft tissue, and bone windows. Reconstructed coronal and sagittal MPR images reviewed. Delayed images for evaluation of the urinary system also acquired. All images stored on PACS. All CT scanners at this facility use dose modulation, iterative reconstruction, and/or weight based d osing when appropriate to reduce radiation dose to as low as reasonably achievable (ALARA). [facility]: Dose Right [facility]: CareDose [facility]: Dose Right [facility]: Teradose 4D [facility]: Zenamins CONTRAST TYPE AND DOSE: contrast/concentration: Isovue 350.00 mg/ml; Total Contrast Delivered: 100.0 ml; Total Saline Delivered: 53.0 ml RENAL FUNCTION: BUN 15 creatinine 0.56 RADIATION DOSE: CT Rad equipment meets quality standard of care and radiation dose reduction techniq ues were employed. CTDIvol: 10.9 - 14.6 mGy. DLP: 2382 mGy-cm.. LIMITATIONS: None. FINDINGS: LOWER CHEST: There is mild dependent atelectasis in the lung bases. LIVER: Normal size. No masses. No dilated ducts. SPLEEN: Normal size. No focal lesions. PANCREAS: No masses. No significant calcifications. No adjacent inflammation or peripancreatic fluid collections. Pancreatic duct not dilated. GALLBLADDER: Cannot exclude some low-density gallstones. ADRENAL GLANDS: No significant masses or asymmetry. RIGHT KIDNEY AND URETER: No solid masses. No significant calcifications. No hydronephrosis or hyd roureter. LEFT KIDNEY AND URETER: No solid masses. No significant calcifications. No hydronephrosis or hydr oureter. AORTA AND VESSELS: No aneurysm. No dissection. Renal arteries, SMA, celiac without stenosis. RETROPERITONEUM: No retroperitoneal adenopathy, hemorrhage or masses. BOWEL AND PERITONEAL CAVITY: Retained stool in the colon. No bowel mass. APPENDIX: Normal. PELVIS: Markedly distended urinary bladder with suprapubic catheter in place. Bladder stones are pre sent. No pelvic mass or fluid collection. ABDOMINAL WALL: No masses. No hernias. BONES: No significant or acute findings. OTHER: No other significant finding. IMPRESSION: Markedly distended urinary bladder with bladder stones. Suprapubic catheter. Constipat ion. Possible low-density gallstones. TECHNICAL DOCUMENTATION: JOB ID: [id number] Quality ID # [id number]: Final reports with documentation of one or more dose reduction techniques (e.g., Au tomated exposure control, adjustment of the mA and/or kV according to patient size, use of iterative reconstruction technique) 2010 [employer]- All Rights Reserved Reading location - IP/workstation name: [email or web address]
[2019-06-21] MEDS ORDERED: NORMAL SALINE 250 ML IV ONE (20:12)
[2019-06-21] MEDS ORDERED: CEFTRIAXONE 1 GM/D5W RTU 1 GM/50 ML RTUPB IV ONE (20:20)
[2019-06-21] MEDS ORDERED: HYDRALAZINE HCL INJ/PF 20 MG/1 ML SDV IV PRN (20:26)
[2019-06-21] MEDS ORDERED: IPRATROPIUM/ALBUTEROL 0.5-2.5 MG/3 ML AMPUL NEB PRN (20:27)
[2019-06-21] MEDS ORDERED: DEXTROSE 40% GEL 15 GM TUBE PO PRN ×2 (20:27)
[2019-06-21] MEDS ORDERED: ACETAMINOPHEN 325 MG TABLET PO PRN (20:27)
[2019-06-21] MEDS ORDERED: MAG HYDROX/AL HYDROX/SIMETH SUSP 30 ML UDCUP PO PRN (20:27)
[2019-06-21] MEDS ORDERED: GLUCAGON,HUMAN RECOMB 1 MG INJ IM PRN (20:27)
[2019-06-21] MEDS ORDERED: DEXTROSE 50%-WATER 25 GM/50 ML DISP.SYRIN IV PRN ×2 (20:27)
[2019-06-21] MEDS ORDERED: NORMAL SALINE 1000 ML 1,000 ML IV SCH (20:30)
[2019-06-21] MEDS ORDERED: MAGNESIUM HYDROXIDE SUSP 30 ML UDCUP PO ONE (21:00)
[2019-06-21] MEDS ORDERED: LACTULOSE SYRUP 20 GM/30 ML UDCUP PR ONE (21:15)
[2019-06-22] MEDS ORDERED: MAGNESIUM HYDROXIDE SUSP 30 ML UDCUP ONE (00:09)
[2019-06-22] MEDS: NORMAL SALINE 1000 ML 1,000 ML IV PRN ×3 (00:49→10:31)
[2019-06-22] MEDS ORDERED: INFLUENZA QUAD (6MOS+) 2019-20 VAC 0.5 ML SYR IM ONE (01:47)
[2019-06-22] MEDS: HEPARIN SOD (PORCINE) 5,000 UNIT/ML 1 ML VIAL SUBCUT SCH ×3 (03:20→14:12)
[2019-06-22] MEDS ORDERED: ALPRAZOLAM 0.5 MG TABLET PO PRN (05:04)
[2019-06-22 05:16] LABS: ABSOLUTE EOSINOPHILS # (AUTO) 0.1 10^3/uL (0.0-0.6); ABSOLUTE LYMPHOCYTES (AUTO) 1.3 10^3/uL (0.5-4.7); ABSOLUTE MONOCYTES (AUTO) 0.5 10^3/uL (0.1-1.4); ABSOLUTE NEUT (AUTO) 9.5 10^3/uL (1.7-8.2); BASOPHILS % (AUTO) 0.3 % (0-2); HEMATOCRIT 38.7 % (37.9-51.0); HEMOGLOBIN 13.6 g/dL (13.5-17.0); MEAN CORPUSCULAR HEMOGLOBIN 30.1 pg (27.0-33.4); MEAN CORPUSCULAR HGB CONC 35.1 g/dL (32.0-36.0); MEAN CORPUSCULAR VOLUME 86 fl (80-97); MONOCYTES % (AUTO) 4.4 % (3-13); PLATELET COUNT 218 10^3/uL (150-450); RED BLOOD COUNT 4.52 10^6/uL (4.35-5.55); SEGMENTED NEUTROPHILS % (AUTO) 83.3 % (42-78); TOTAL CELLS COUNTED % (AUTO) 100 %; WHITE BLOOD COUNT 11.4 10^3/uL (4.0-10.5)
--- NOTE | 2019-06-22 05:17 | PDOC H&P ---
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 He presents with fever and in the emergency room is found to have a distended urinary bladder requiring catheter replacement resulting in 3 L of gross pyuria. CT imaging reveals no pyelonephritis, hydronephrosis or abscess but significant fecal impaction. He started on IV Rocephin and referred to the hospitalist for admission patient is poor historian unable to provide significant history. In review of microbiology he has had several remote cultures sensitive to Pseudomonas and E faecalis. Patient has not been on recent antibiotics according to caregiver at bedside who verifies CODE STATUS to be DNR Past Medical History Neurological Medical History: Reports: Seizures Psychiatric Medical History: Reports: Depression Infectious Medical History: Reports: Methicillin-Resistant Staph Aureus Past Surgical History Past Surgical History: Reports: Orthopedic Surgery - spinal fusion Social History Information Source: Friend, [facility] Records Lives with: Spouse/Significant other Smoking Status: Unknown if Ever Smoked Frequency of Alcohol Use: None Hx Recreational Drug Use: No Drugs: None Hx Prescription Drug Abuse: No - Advance Directive Resuscitation Status: Do Not Resuscitate Family History Family History: Hypertension Parental Family History Reviewed: Yes Children Family History Reviewed: Yes Sibling(s) Family History Reviewed.: Yes Medication/Allergy Home Medications: Alprazolam [Xanax 0.5 mg Tablet] 0.5 mg PO BID 06/21/19 Alprazolam [Xanax 0.5 mg Tablet] 0.5 mg PO Q6HP PRN 06/21/19 Aspirin [Adult Low Dose Aspirin EC] 81 mg PO DAILY 06/21/19 Baclofen [Baclofen 10 mg Tablet] 10 mg PO Q8 06/21/19 Gabapentin [Neurontin 100 mg Capsule] 100 mg PO Q8 06/21/19 Hydrocodone/Acetaminophen [[place] 5-325 mg Tablet] 1 tab PO Q6HP PRN 06/21/19 Levetiracetam [Keppra 500 mg Tablet] 500 mg PO Q12 06/21/19 Linaclotide [Linzess 145 Mcg Capsule] 145 mcg PO DAILY 06/21/19 Methenamine Hippurate [Hiprex] 1 gm PO BID 06/21/19 Sertraline HCl 100 mg PO DAILY 06/21/19 Allergies/Adverse Reactions: No Known Allergies Allergy (Verified 06/21/19 17:37) Review of Systems ROS unobtainable: Due to mental status Physical Exam Vital Signs: Temp Pulse Resp BP Pulse Ox 98.2 F 80 16 110/70 98 06/22/19 03:10 06/22/19 03:10 06/22/19 03:10 06/22/19 03:10 06/22/19 03:10 Intake & Output 06/20/19 06/21/19 06/22/19 11:59 11:59 11:59 Intake Total 1000 Balance 1000 Weight 90.7 kg General appearance: PRESENT: cooperative, severe distress, well-developed Head exam: PRESENT: atraumatic, normocephalic Eye exam: PRESENT: conjunctiva pink, EOMI, PERRLA. ABSENT: scleral icterus Ear exam: PRESENT: normal external ear exam Mouth exam: PRESENT: dry mucosa, tongue midline. ABSENT: moist Neck exam: ABSENT: carotid bruit, JVD, lymphadenopathy, thyromegaly Respiratory exam: PRESENT: clear to auscultation tessie. ABSENT: rales, rhonchi, wheezes Cardiovascular exam: PRESENT: RRR. ABSENT: diastolic murmur, rubs, systolic murmur Pulses: PRESENT: normal dorsalis pedis pul Vascular exam: PRESENT: normal capillary refill GI/Abdominal exam: PRESENT: distended, hypoactive bowel sounds, normal bowel sounds, soft, tenderness. ABSENT: guarding, mass, organolmegaly, rebound Rectal exam: PRESENT: deferred Extremities exam: PRESENT: full ROM. ABSENT: calf tenderness, clubbing, pedal edema Neurological exam: PRESENT: alert, awake, oriented to person, oriented to time, CN II-XII grossly intact. ABSENT: motor sensory deficit Psychiatric exam: PRESENT: agitated Skin exam: PRESENT: dry, intact, warm. ABSENT: cyanosis, rash Results Laboratory Results: 06/21/19 06/21/19 06/21/19 17:25 17:25 17:25 WBC 15.6 H RBC 6.03 H Hgb 18.1 H Hct 52.5 H MCV 87 MCH 30.0 MCHC 34.4 RDW 13.2 Plt Count 271 Seg Neutrophils % 84.2 H Sodium 136.7 L Potassium 5.2 H Chloride 97 L Carbon Dioxide 27 Anion Gap 13 BUN 15 Creatinine 0.56 Est GFR ( Amer) > 60 Glucose 371 H Lactic Acid 2.8 H Calcium 11.0 H Total Bilirubin 0.5 AST 24 Alkaline Phosphatase 141 H Total Protein 8.2 Albumin 4.2 Lipase 165.7 Urine Color Urine Appearance Urine pH Ur Specific [employer] Urine Protein Urine Glucose (UA) Urine Ketones Urine Blood Urine Nitrite Ur Leukocyte Esterase Urine WBC (Auto) Urine RBC (Auto) 06/21/19 06/21/19 17:56 20:32 WBC RBC Hgb Hct MCV MCH MCHC RDW Plt Count Seg Neutrophils % Sodium Potassium Chloride Carbon Dioxide Anion Gap BUN Creatinine Est GFR ( Amer) Glucose Lactic Acid 2.5 H Calcium Total Bilirubin AST Alkaline Phosphatase Total Protein Albumin Lipase Urine Color YELLOW Urine Appearance TURBID Urine pH 8.0 Ur Specific [employer] 1.008 Urine Protein 30 H Urine Glucose (UA) >=500 H Urine Ketones NEGATIVE Urine Blood SMALL H Urine Nitrite NEGATIVE Ur Leukocyte Esterase LARGE H Urine WBC (Auto) >182 Urine RBC (Auto) 6 06/21/19 17:25 CK-MB (CK-2) 0.54 Troponin I < 0.012 Impressions: Chest X-Ray 06/21/19 17:24 IMPRESSION: Left basilar pneumonitis. Abdomen/Pelvis CT 06/21/19 17:41 IMPRESSION: Markedly distended urinary bladder with bladder stones. Suprapubic catheter. Constipation. Possible low-density gallstones. Assessment and Plan - Diagnosis (1) UTI (urinary tract infection) due to urinary indwelling Mcguire catheter Qualifiers: Is this a current diagnosis for this admission?: Yes Plan: Complicated by outlet obstruction and suprapubic catheter now replaced and flushed. Empiric cefepime for Pseudomonas history, follow-up blood and urine culture. (2) Seizure disorder Is this a current diagnosis for this admission?: Yes Plan: Benzodiazepine dependent and outpatient antiepileptic regiment (3) Fecal impaction Is this a current diagnosis for this admission?: Yes Plan: Daily milk of magnesia, Fleet enema as needed - Time Time Spent with patient: 25-34 minutes - Inpatient Certification Medical Necessity: Need Close Monitoring Due to Risk of Patient Decompensation
[2019-06-22 05:29] LABS: ANION GAP 9 (5-19); BLOOD UREA NITROGEN 14 mg/dL (7-20); CALCIUM 9.3 mg/dL (8.4-10.2); CARBON DIOXIDE 24 mmol/L (22-30); CHLORIDE 103 mmol/L (98-107); GLUCOSE 322 mg/dL (75-110)
[2019-06-22] MEDS ORDERED: ALPRAZOLAM 0.5 MG TABLET PO ONE (05:30)
[2019-06-22] MEDS ORDERED: CEFEPIME 1 GM/D5W RTU 1 GM/50 ML RTUPB IV ONE (05:30)
[2019-06-22] MEDS: BACLOFEN 10 MG TABLET PO SCH ×3 (05:31→21:26)
[2019-06-22] MEDS: GABAPENTIN 100 MG CAPSULE PO SCH ×3 (05:31→21:26)
[2019-06-22 05:55] LABS: POTASSIUM 4.1 mmol/L (3.6-5.0)
[2019-06-22] MEDS: IPRATROPIUM/ALBUTEROL 0.5-2.5 MG/3 ML AMPUL NEB SCH ×2 (07:38→20:26)
[2019-06-22] MEDS: INSULIN LISPRO 100 UNIT/ML 3 ML VIAL SUBCUT SCH ×3 (10:26→17:29)
[2019-06-22] MEDS: SERTRALINE HCL 50 MG TABLET PO SCH (10:29)
[2019-06-22] MEDS: ASPIRIN 81 MG TABLET, ENT COATED PO SCH (10:29)
[2019-06-22] MEDS: HYDROCODONE/ACETAMINOPHEN 5-325 MG TABLET PO PRN ×2 (10:30→21:26)
[2019-06-22] MEDS: LEVETIRACETAM 500 MG TABLET PO SCH ×2 (10:30→21:28)
--- NOTE | 2019-06-22 14:31 | PDOC PROGRESS REPORT ---
Subjective Progress Note for:: 06/22/19 Subjective:: Patient currently due to having his usual tremors. He does not complain of anything at the moment. Patient does have rash on his bottom. Reason For Visit: UTI SEPSIS FECAL,IMPACTION Physical Exam Vital Signs: Temp Pulse Resp BP Pulse Ox 98.1 F 63 14 103/59 L 96 06/22/19 12:25 06/22/19 12:25 06/22/19 12:25 06/22/19 12:25 06/22/19 12:25 Intake & Output 06/21/19 06/22/19 06/23/19 06:59 06:59 06:59 Intake Total 2310 1000 Output Total 1000 Balance 1310 1000 Weight 90.7 kg General appearance: PRESENT: no acute distress, cooperative Neck exam: ABSENT: JVD Respiratory exam: PRESENT: clear to auscultation tessie, symmetrical, unlabored. ABSENT: tachypnea, wheezes Cardiovascular exam: PRESENT: RRR, +S1, +S2. ABSENT: tachycardia GI/Abdominal exam: PRESENT: normal bowel sounds, soft. ABSENT: rebound, rigid, tenderness Neurological exam: PRESENT: alert, awake, oriented to person, oriented to place, oriented to time, aphasic - Expressive aphasia but able to follow commands, other - Spasticity of right arm with contracture and mildly spastic left arm. Bedbound. Expressive aphasia Skin exam: PRESENT: rash - Erythematous macular rash surrounding anal area at region of diaper looking similar to a diaper rash Results Laboratory Results: 06/22/19 03:53 06/22/19 03:53 06/21/19 06/21/19 06/21/19 17:25 17:25 17:25 WBC 15.6 H RBC 6.03 H Hgb 18.1 H Hct 52.5 H MCV 87 MCH 30.0 MCHC 34.4 RDW 13.2 Plt Count 271 Seg Neutrophils % 84.2 H Sodium 136.7 L Potassium 5.2 H Chloride 97 L Carbon Dioxide 27 Anion Gap 13 BUN 15 Creatinine 0.56 Est GFR ( Amer) > 60 Glucose 371 H Lactic Acid 2.8 H Calcium 11.0 H Total Bilirubin 0.5 AST 24 Alkaline Phosphatase 141 H Total Protein 8.2 Albumin 4.2 Lipase 165.7 Urine Color Urine Appearance Urine pH Ur Specific [place] Urine Protein Urine Glucose (UA) Urine Ketones Urine Blood Urine Nitrite Ur Leukocyte Esterase Urine WBC (Auto) Urine RBC (Auto) 06/21/19 06/21/19 06/22/19 17:56 20:32 03:53 WBC 11.4 H RBC 4.52 Hgb 13.6 D Hct 38.7 MCV 86 MCH 30.1 MCHC 35.1 RDW 13.0 Plt Count 218 Seg Neutrophils % 83.3 H Sodium Potassium Chloride Carbon Dioxide Anion Gap BUN Creatinine Est GFR ( Amer) Glucose Lactic Acid 2.5 H Calcium Total Bilirubin AST Alkaline Phosphatase Total Protein Albumin Lipase Urine Color YELLOW Urine Appearance TURBID Urine pH 8.0 Ur Specific [place] 1.008 Urine Protein 30 H Urine Glucose (UA) >=500 H Urine Ketones NEGATIVE Urine Blood SMALL H Urine Nitrite NEGATIVE Ur Leukocyte Esterase LARGE H Urine WBC (Auto) >182 Urine RBC (Auto) 6 06/22/19 03:53 WBC RBC Hgb Hct MCV MCH MCHC RDW Plt Count Seg Neutrophils % Sodium 135.9 L Potassium 4.1 D Chloride 103 Carbon Dioxide 24 Anion Gap 9 BUN 14 Creatinine 0.49 L Est GFR ( Amer) > 60 Glucose 322 H Lactic Acid Calcium 9.3 Total Bilirubin AST Alkaline Phosphatase Total Protein Albumin Lipase Urine Color Urine Appearance Urine pH Ur Specific [place] Urine Protein Urine Glucose (UA) Urine Ketones Urine Blood Urine Nitrite Ur Leukocyte Esterase Urine WBC (Auto) Urine RBC (Auto) 06/21/19 20:32 Blood Blood Culture (PCR) - Final Escherichia Coli 06/21/19 17:25 CK-MB (CK-2) 0.54 Troponin I < 0.012 Impressions: Chest X-Ray 06/21/19 17:24 IMPRESSION: Left basilar pneumonitis. Abdomen/Pelvis CT 06/21/19 17:41 IMPRESSION: Markedly distended urinary bladder with bladder stones. Suprapubic catheter. Constipation. Possible low-density gallstones. Assessment and Plan - Diagnosis (1) Complicated UTI (urinary tract infection) Is this a current diagnosis for this admission?: Yes Plan: Suprapubic catheter replaced and flushed the ER. Cefepime day 2 given history of Pseudomonas (2) E coli bacteremia Is this a current diagnosis for this admission?: Yes Plan: Currently on cefepime. E. coli bacteremia secondary to UTI. This will warrant 10 days of antibiotics (3) Fecal impaction Is this a current diagnosis for this admission?: Yes Plan: Had large bowel movement in the ER yesterday. Daily milk of magnesia, Fleet enema as needed (4) History of spinal cord injury Is this a current diagnosis for this admission?: Yes Plan: Baclofen for tremors. Chronically on Xanax. Continue gabapentin for neuropathy. Bedridden. Turns. (5) Diaper rash Is this a current diagnosis for this admission?: Yes Plan: Emollients application (6) Seizure disorder Is this a current diagnosis for this admission?: Yes Plan: Continue Keppra and gabapentin - Time Time Spent with patient: Less than 15 minutes
[2019-06-22] MEDS ORDERED: NORMAL SALINE 1000 ML 1,000 ML IV PRN (14:35)
[2019-06-22] MEDS ORDERED: INSULIN NPH (ISOPHANE), HUMAN 100 UNIT/ML 3 ML SUBCUT SCH (16:00)
--- NOTE | 2019-06-22 17:09 | ADVANCED CARE ---
- Diagnosis (1) Complicated UTI (urinary tract infection) Diagnosis Current: Yes (2) E coli bacteremia Diagnosis Current: Yes (3) Fecal impaction Diagnosis Current: Yes (4) History of spinal cord injury Diagnosis Current: Yes (7) Sepsis Diagnosis Current: Yes Attendance: Discussed with patient's via phone Resuscitation Status: Do Not Resuscitate Discussion: I was informed that patient was originally on hospice while at home. I called patient's Ebony Hassan via telephone who states that patient was brought in yesterday for evaluation of a lump in his suprapubic area. She had discovered this to at home and contacted her hospice agency who asked to bring patient to the ER for evaluation. In the ER, abdominal CT was done which revealed bladder distention with some stones. Patient suprapubic catheter was changed and started working nicely with subsequent decompression of the bladder after which patient was then admitted for UTI. I discussed with letting her know that patient is currently comfortable following decompression of his bladder and inquired on what her wishes would be in terms of continue treatment for urinary tract infection and sepsis with IV antibiotics, repeat blood draws, monitoring sepsis indices, IV fluid boluses versus patient being discharged home to resume hospice care now that bladder has been decompressed with a new suprapubic catheter. Patient would like for blood draws to be stopped, discontinuation of IV fluids, and for patient to resume comfort care measures only, maintaining DNR/DNI status and to be discharged back on hospice tomorrow. I will discharge patient with an oral antibiotics for his UTI but will discontinue all blood draws and resume comfort care. Discharge planning consult placed to coordinate resumption of hospice care for patient. Time Spent: mninutes
[2019-06-22] MEDS ORDERED: NORMAL SALINE 1000 ML 1,000 ML IV ONE (17:30)
[2019-06-22] MEDS: ALPRAZOLAM 0.5 MG TABLET PO SCH (17:32)
[2019-06-22] MEDS ORDERED: CEFEPIME 1 GM/D5W RTU 1 GM/50 ML RTUPB IV SCH (18:00)
[2019-06-22] MEDS ORDERED: LEVOFLOXACIN 500 MG TABLET PO SCH (18:00)
[2019-06-22] MEDS ORDERED: INSULIN GLARGINE,HUM.REC.ANLOG 1,000 UNIT/10 ML VIAL SUBCUT SCH (22:00)
--- NOTE | 2019-06-22 23:54 | EKG REPORT ---
SEVERITY:- ABNORMAL ECG - SINUS TACHYCARDIA BORDERLINE RIGHT AXIS DEVIATION BORDERLINE R WAVE PROGRESSION, ANTERIOR LEADS MINIMAL ST DEPRESSION, ANTEROLATERAL LEADS ST ELEVATION, INFERIOR LEADS AND LATERAL CHEST LEADS, CONSIDER ACUTE SC : Confirmed by: Jay Jay Gallardo 22-Jun-2019 23:53:50
[2019-06-23] MEDS: BACLOFEN 10 MG TABLET PO SCH ×2 (05:46→14:56)
[2019-06-23] MEDS: GABAPENTIN 100 MG CAPSULE PO SCH ×2 (05:46→14:56)
[2019-06-23] MEDS: HYDROCODONE/ACETAMINOPHEN 5-325 MG TABLET PO PRN (05:46)
[2019-06-23] MEDS: IPRATROPIUM/ALBUTEROL 0.5-2.5 MG/3 ML AMPUL NEB SCH (07:40)
--- NOTE | 2019-06-23 09:22 | PDOC DISCHARGE SUMMARY ---
Impression - Admit/DC Date/PCP Admission Date/Primary Care Provider: 06/21/19 20:53 Discharge Date: 06/23/19 - Discharge Diagnosis (1) Complicated UTI (urinary tract infection) Is this a current diagnosis for this admission?: Yes (2) E coli bacteremia Is this a current diagnosis for this admission?: Yes (3) Fecal impaction Is this a current diagnosis for this admission?: Yes (4) History of spinal cord injury Is this a current diagnosis for this admission?: Yes (5) Diaper rash Is this a current diagnosis for this admission?: Yes (6) Seizure disorder Is this a current diagnosis for this admission?: Yes (7) Sepsis Is this a current diagnosis for this admission?: Yes - Assessment Summary: Patient presented from being on home hospice but was sent in for evaluation of lump in suprapubic area. In the ER, abdominal CT revealed significant urinary bladder distention. Patient suprapubic catheter was found to be clogged and the catheter was subsequently replaced and was functioning nicely. Urinalysis was positive. Decision at that time was made to admit patient for treatment of complicated urinary tract infection accompanied by sepsis as evidenced by lactic acidosis, leukocytosis, and sinus tachycardia in the 140s. Patient was given IV fluids and started on IV antibiotics cefepime given history of Pseudomonas in the past. Blood cultures later resulted to be positive for E. coli as well as the urine cultures. Yesterday, I had an extensive discussion with patient's /decision maker who requested that patient be made comfort care once again, discontinuation of blood draws and to be continued back on hospice. Refer to advanced care planning note for further details. I have placed patient on Levaquin for 7 days and have discharge patient home to continue hospice care. Discharge planning has been notified to reinitiate hospice care. - Additional Information Resuscitation Status: Do Not Resuscitate Discharge Diet: Regular Discharge Activity: Activity As Tolerated Prescriptions: Levofloxacin [Levaquin 500 mg Tablet] 500 mg PO QPM #7 tablet Home Medications: Alprazolam [Xanax 0.5 mg Tablet] 0.5 mg PO BID 06/21/19 Alprazolam [Xanax 0.5 mg Tablet] 0.5 mg PO Q6HP PRN 06/21/19 Aspirin [Adult Low Dose Aspirin EC] 81 mg PO DAILY 06/21/19 Baclofen [Baclofen 10 mg Tablet] 10 mg PO Q8 06/21/19 Gabapentin [Neurontin 100 mg Capsule] 100 mg PO Q8 06/21/19 Hydrocodone/Acetaminophen [[place] 5-325 mg Tablet] 1 tab PO Q6HP PRN 06/21/19 Levetiracetam [Keppra 500 mg Tablet] 500 mg PO Q12 06/21/19 Linaclotide [Linzess 145 Mcg Capsule] 145 mcg PO DAILY 06/21/19 Methenamine Hippurate [Hiprex] 1 gm PO BID 06/21/19 Sertraline HCl 100 mg PO DAILY 06/21/19 Levofloxacin [Levaquin 500 mg Tablet] 500 mg PO QPM #7 tablet 06/23/19 History of Present Illiness History of Present Illness: HUMBERTO GARCIA is a 64 year old male with a past medical history of cervical spinal cord injury in 1982, 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 He presents with fever and in the emergency room is found to have a distended urinary bladder requiring catheter replacement resulting in 3 L of gross pyuria. CT imaging reveals no pyelonephritis, hydronephrosis or abscess but significant fecal impaction. He started on IV Rocephin and referred to the hospitalist for admission patient is poor historian unable to provide significant history. In review of microbiology he has had several remote cultures sensitive to Pseudomonas and E faecalis. Patient has not been on recent antibiotics according to caregiver at bedside who verifies CODE STATUS to be DNR Physical Exam Vital Signs: Temp Pulse Resp BP Pulse Ox 97.3 F 75 18 112/63 95 06/23/19 07:58 06/23/19 07:58 06/23/19 07:58 06/23/19 07:58 06/23/19 07:58 Intake & Output 06/22/19 06/23/19 06/24/19 06:59 06:59 06:59 Intake Total 2310 2930 Output Total 1000 5100 Balance 1310 -2170 Weight 90.7 kg 80.7 kg General appearance: PRESENT: no acute distress, cooperative, well-nourished Musculoskeletal exam: ABSENT: ambulatory Neurological exam: PRESENT: alert, awake Results Laboratory Results: WBC 11.4 10^3/uL (4.0-10.5) H 06/22/19 03:53 RBC 4.52 10^6/uL (4.35-5.55) 06/22/19 03:53 Hgb 13.6 g/dL (13.5-17.0) D 06/22/19 03:53 Hct 38.7 % (37.9-51.0) 06/22/19 03:53 MCV 86 fl (80-97) 06/22/19 03:53 MCH 30.1 pg (27.0-33.4) 06/22/19 03:53 MCHC 35.1 g/dL (32.0-36.0) 06/22/19 03:53 RDW 13.0 % (11.5-14.0) 06/22/19 03:53 Plt Count 218 10^3/uL (150-450) 06/22/19 03:53 Lymph % (Auto) 11.0 % (13-45) L 06/22/19 03:53 [place] % (Auto) 4.4 % (3-13) 06/22/19 03:53 Eos % (Auto) 1.0 % (0-6) 06/22/19 03:53 Baso % (Auto) 0.3 % (0-2) 06/22/19 03:53 Absolute Neuts (auto) 9.5 10^3/uL (1.7-8.2) H 06/22/19 03:53 Absolute Lymphs (auto) 1.3 10^3/uL (0.5-4.7) 06/22/19 03:53 Absolute Monos (auto) 0.5 10^3/uL (0.1-1.4) 06/22/19 03:53 Absolute Eos (auto) 0.1 10^3/uL (0.0-0.6) 06/22/19 03:53 Absolute Basos (auto) 0.0 10^3/uL (0.0-0.2) 06/22/19 03:53 Seg Neutrophils % 83.3 % (42-78) H 06/22/19 03:53 Sodium 135.9 mmol/L (137-145) L 06/22/19 03:53 Potassium 4.1 mmol/L (3.6-5.0) D 06/22/19 03:53 Chloride 103 mmol/L (98-107) 06/22/19 03:53 Carbon Dioxide 24 mmol/L (22-30) 06/22/19 03:53 Anion Gap 9 (5-19) 06/22/19 03:53 BUN 14 mg/dL (7-20) 06/22/19 03:53 Creatinine 0.49 mg/dL (0.52-1.25) L 06/22/19 03:53 Est GFR ( Amer) > 60 (>60) 06/22/19 03:53 Est GFR (MDRD) Non-Af > 60 (>60) 06/22/19 03:53 Glucose 322 mg/dL (75-110) H 06/22/19 03:53 POC Glucose 242 mg/dL (70-110) H 06/23/19 08:02 Hemoglobin A1c % 10.9 % (4.7-6.0) H 06/22/19 03:53 Lactic Acid 3.2 mmol/L (0.7-2.1) H 06/22/19 14:55 Calcium 9.3 mg/dL (8.4-10.2) 06/22/19 03:53 Total Bilirubin 0.5 mg/dL (0.2-1.3) 06/21/19 17:25 Direct Bilirubin 0.3 mg/dL (0.0-0.4) 06/21/19 17:25 Neonat Total Bilirubin Not Reportable 06/21/19 17:25 Neonat Direct Bilirubin Not Reportable 06/21/19 17:25 Neonat Indirect Bili Not Reportable 06/21/19 17:25 AST 24 U/L (17-59) 06/21/19 17:25 ALT 19 U/L (<50) 06/21/19 17:25 Alkaline Phosphatase 141 U/L (38-126) H 06/21/19 17:25 CK-MB (CK-2) 0.54 ng/mL (<4.55) 06/21/19 17:25 Troponin I < 0.012 ng/mL 06/21/19 17:25 Total Protein 8.2 g/dL (6.3-8.2) 06/21/19 17:25 Albumin 4.2 g/dL (3.5-5.0) 06/21/19 17:25 Lipase 165.7 U/L (23-300) 06/21/19 17:25 Urine Color YELLOW 06/21/19 17:56 Urine Appearance TURBID 06/21/19 17:56 Urine pH 8.0 (5.0-9.0) 06/21/19 17:56 Ur Specific [place] 1.008 06/21/19 17:56 Urine Protein 30 mg/dL (NEGATIVE) H 06/21/19 17:56 Urine Glucose (UA) >=500 mg/dL (NEGATIVE) H 06/21/19 17:56 Urine Ketones NEGATIVE mg/dL (NEGATIVE) 06/21/19 17:56 Urine Blood SMALL (NEGATIVE) H 06/21/19 17:56 Urine Nitrite NEGATIVE (NEGATIVE) 06/21/19 17:56 Urine Bilirubin NEGATIVE (NEGATIVE) 06/21/19 17:56 Urine Urobilinogen NEGATIVE mg/dL (<2.0) 06/21/19 17:56 Ur Leukocyte Esterase LARGE (NEGATIVE) H 06/21/19 17:56 Urine WBC (Auto) >182 /HPF 06/21/19 17:56 Urine RBC (Auto) 6 /HPF 06/21/19 17:56 Urine Bacteria (Auto) 3+ /HPF 06/21/19 17:56 Urine WBC Clumps MANY /HPF 06/21/19 17:56 Squamous Epi Cells Auto 5 /HPF 06/21/19 17:56 Urine Mucus (Auto) FEW /LPF 06/21/19 17:56 Urine Ascorbic Acid NEGATIVE (NEGATIVE) 06/21/19 17:56 06/21/19 17:25 CK-MB (CK-2) 0.54 Troponin I < 0.012 Impressions: Chest X-Ray 06/21/19 17:24 IMPRESSION: Left basilar pneumonitis. Abdomen/Pelvis CT 06/21/19 17:41 IMPRESSION: Markedly distended urinary bladder with bladder stones. Suprapubic catheter. Constipation. Possible low-density gallstones. Plan Time Spent: Less than 30 Minutes Stroke Is this a Stroke Patient?: Yes Stroke Pt being discharged on Anti-thrombolytic therapy?: No Reason(s) for not prescribing Anti-thrombolytic therapy:: Hospice Care Stroke Pt being discharged on Anti-coagulation therapy?: No Reason(s) for not prescribing Anti-coagulation therapy:: Hospice Care Stroke Pt being discharged on Statins?: No Reason(s) for not prescribing Statins therapy:: Hospice Care Acute Heart Failure - Is this a Heart Failure Patient?: No
[2019-06-23] MEDS: LEVETIRACETAM 500 MG TABLET PO SCH (09:25)
[2019-06-23] MEDS: SERTRALINE HCL 50 MG TABLET PO SCH (09:25)
[2019-06-23] MEDS: ASPIRIN 81 MG TABLET, ENT COATED PO SCH (09:25)
[2019-06-23] MEDS: ALPRAZOLAM 0.5 MG TABLET PO SCH (09:25)
[2019-06-23 15:30] VITALS: BP 88/58
== END 2019-06-23 15:44 | disposition hospice, home (50) | DRG 698 ==
LOC: ER 16:29 → EH 20:53 → 3N 23:45
PROVIDERS: ADMIT Internal Medicine; ATTEND Internal Medicine
DX: T83.511A Infection and inflammatory reaction due to indwelling urethral catheter, initial encounter (principal); A41.51 Sepsis due to Escherichia coli [E. coli]; N39.0 Urinary tract infection, site not specified; I69.354 Hemiplegia and hemiparesis following cerebral infarction affecting left non-dominant side; K56.41 Fecal impaction; G40.909 Epilepsy, unspecified, not intractable, without status epilepticus; L22 Diaper dermatitis; Y84.6 Urinary catheterization as the cause of abnormal reaction of the patient, or of later complication, without mention of misadventure at the time of the procedure; G62.9 Polyneuropathy, unspecified; F32.9 Major depressive disorder, single episode, unspecified; B96.20 Unspecified Escherichia coli [E. coli] as the cause of diseases classified elsewhere; Z66 Do not resuscitate; I69.320 Aphasia following cerebral infarction; Z79.899 Other long term (current) drug therapy; Z86.14 Personal history of Methicillin resistant Staphylococcus aureus infection; Z87.828 Personal history of other (healed) physical injury and trauma; Z87.891 Personal history of nicotine dependence; Z82.49 Family history of ischemic heart disease and other diseases of the circulatory system; Z79.82 Long term (current) use of aspirin; Z74.01 Bed confinement status
CPT/HCPCS: 36415; 71045; 74177; 80048; 80053; 81001; 82553; 82962; 83036; 83605; 83690; 84484; 85025; 87040; 87077; 87086; 87088; 87150; 87186; 93005; 93010; 96360; 96361; 99285; J0692; J0696; J1644; J1815; J3490; J7030; J7620